=== PATIENT | female | born 1945 | race Caucasian/White ===

== ENCOUNTER → 2019-04-13 | Outpatient (CLI) | payer MEDICARE, OTHER | LOC: CARD 08:39 | PROVIDERS: ATTEND Family Medicine | DX: R06.09 Other forms of dyspnea (principal) | CPT/HCPCS: 93306 ==

== ENCOUNTER → 2019-05-11 | Outpatient (CLI) | payer MEDICARE, OTHER ==
[~2019-05-11] MED LIST: RT-ALBUTEROL SULF 2.5 MG/3 ML PRE-MIX VIAL INH ONE
== END ==
LOC: RT 10:17
PROVIDERS: ATTEND Family Medicine
DX: R06.09 Other forms of dyspnea (principal)
CPT/HCPCS: 94060; 94726; 94729

== ENCOUNTER 2021-01-11 22:24 | Emergency (ER) | payer MEDICARE, OTHER ==
[~2021-01-11] VITALS: Ht 165.1 cm; Wt 90.7 kg
[2021-01-11] MEDS ORDERED: KETOROLAC 60 MG/2 ML VIAL IM ONE (23:45)
--- NOTE | 2021-01-11 23:59 | Diagnostic Imaging Report ---
INDICATION: Left knee pain AP, oblique, and lateral views of the left knee are obtained. No acute fracture or acute bony abnormality seen. There is severe medial joint space narrowing with osteophyte formation with moderate lateral joint space narrowing and osteophyte formation. There is prominent patellofemoral spurring. There is a small joint effusion with questionable loose body in the superior joint space. IMPRESSION: Advanced degenerative changes of the left knee with joint effusion and questionable loose body in the superior joint space. No acute fracture. Dictated by: Dictated on workstation # [id number]
[2021-01-12] MEDS ORDERED: RX-NAPROXEN (NAPROSYN) 250 MG TAB PPK#4 PO STA (00:23)
[2021-01-12] MEDS ORDERED: TRAM-42 PO (00:26)
[2021-01-12] MEDS ORDERED: NAPR500T8 PO (00:26)
--- NOTE | 2021-01-12 00:27 | ED Lower Extremity ---
General Chief Complaint: Lower Extremity Stated Complaint: LEFT KNEE PAIN Nursing Triage Note: ASSISTED PT VIA W/C TO FT1 W/CO POSTERIOR AND ANTERIOR L KNEE PAIN. PT REPORTS AFTER AEROBIC EXERCISES THIS EVENING SHE BEGAN TO EXPERIENCE PAIN TO POSTERIOR L KNEE RADIATING DISTALLY TO CALF. PT DESCRIBES DISCOMFORT FEELING SIMILAR TO A "CHARLEY HORSE." PT REPORTS SHE TOOK 600MG IBUPROFEN AND APPLIED ASPER CREAM WITH NO RELIEF IN DISCOMFORT. PT REPORTS ANTERIOR L KNEE PAIN SHE BELIEVES TO BE ASSOCIATED WITH CHRONIC ARTHRITIS. PT REPORTS SHE RECIEVED A CORTIZONE INJECTION TO R KNEE ON THURSDAY BY DR. PARKER AND BELIEVES SHE NEEDS TO CORTIZONE INJECTION TO L KNEE AT THIS TIME. Allergies and Home Medications Allergies Coded Allergies: No Known Drug Allergies (Unverified , 05/11/19) Past Eughjwa-Uegdhg-Vgocis Hx Patient Social History Tobacco Use?: No Substance use?: No Alcohol Use?: No Pt feels they are or have been: No Past Medical History Reproductive Disorders: No Physical Exam Vital Signs Vital Signs - First Documented 01/11/21 23:12 Temp 36.5 Pulse 110 Resp 17 B/P (MAP) 141/82 (101) Pulse Ox 97 O2 Delivery Room Air Capillary Refill : Less Than 3 Seconds Height, Weight, BMI Height: '" Weight: lbs. oz. kg; 33.00 BMI Method: Progress/Results/Core Measures Results/Orders My Orders Orders - LEROY CÁRDENAS DO Ketorolac Injection (Toradol Injection) (01/11/21 23:45) Knee, Left, 3 Views (01/11/21 23:33) Medications Given in ED Current Medications Medications Dose Ordered Sig/Lalito Route Start Time Stop Time Status Last Admin Dose Admin Ketorolac Tromethamine 60 mg ONCE ONCE IM 01/11/21 23:45 01/11/21 23:46 DC 01/11/21 23:47 60 MG Vital Signs/I&O 01/11/21 23:12 Temp 36.5 Pulse 110 Resp 17 B/P (MAP) 141/82 (101) Pulse Ox 97 O2 Delivery Room Air Blood Pressure Mean: 101 Departure Impression Primary Impression: Left knee pain Disposition: 01 HOME, SELF-CARE Condition: Stable Departure-Patient Inst. Referrals: NEVAEH FRNAKS MD (PCP/Family) Primary Care Physician CATALINO PARKER MD Patient Instructions: Knee Pain ED Add. Discharge Instructions: JACQUE WRAP TO KNEE FOR COMFORT ICE TO AREA AT 20 MINUTE INTERVALS ELEVATE LEG MUCH POSSIBLE FOLLOW UP WITH DR. PARKER NEXT WEEK FOR FURTHER CARE All discharge instructions reviewed with patient and/or family. Voiced understanding. Scripts Tramadol HCl (Ultram) 50 Mg Tablet 50 MG PO Q4H for Pain, #20 TAB Prov: LEROY CÁRDENAS DO 01/12/21 Naproxen (Naproxen) 500 Mg Tablet. 500 MG PO BID, #20 TAB Prov: LEROY CÁRDENAS DO 01/12/21 LEROY CÁRDENAS DO Jan 12, 2021 00:27
[2021-01-12 00:35] VITALS: BP 141/82
== END 2021-01-12 00:35 | disposition home or self-care (01) ==
LOC: EDUNIT# 22:24 → ER 22:28
DX: M25.562 Pain in left knee (principal)
CPT/HCPCS: 73562; 96372

== ENCOUNTER → 2021-02-18 | Outpatient (CLI) | payer OTHER ==
[~2021-02-18] MED LIST changes: +NAPR500T8 PO; -RT-ALBUTEROL SULF 2.5 MG/3 ML PRE-MIX VIAL INH ONE; +TRAM-42 PO
--- NOTE | 2021-02-18 15:54 | Diagnostic Imaging Report ---
INDICATION: Dyspnea on exertion. COMPARISON: CT abdomen dated 01/08/2008. FINDINGS: Frontal and lateral views of the chest demonstrate normal heart size and pulmonary vascularity. The lungs are clear. There are no signs of infiltrate, pleural effusions, or pneumothoraces. The visualized osseous structures show no acute abnormalities. A moderate hiatal hernia is noted. IMPRESSION: No acute process. No signs of infiltrates, effusions, or pneumothoraces. Dictated by: Dictated on workstation # [id number]
== END ==
LOC: RAD 14:46
PROVIDERS: ATTEND Internal Medicine Cardiovascular Disease
DX: R06.09 Other forms of dyspnea (principal)
CPT/HCPCS: 71046

== ENCOUNTER → 2021-02-22 | Outpatient (CLI) | payer MEDICARE | LOC: CARD 09:30 | PROVIDERS: ATTEND Internal Medicine Cardiovascular Disease | DX: I51.7 Cardiomegaly (principal); I36.1 Nonrheumatic tricuspid (valve) insufficiency | CPT/HCPCS: 93306 ==

== ENCOUNTER → 2021-02-28 | Outpatient (CLI) | payer MEDICARE ==
[~2021-02-28] VITALS: Ht 167 cm; Wt 95.0 kg
[~2021-02-28] MED LIST changes: +CATHETER FLUSH 10 ML SYR IV PRN; +REGADENOSON 0.4 MG/5 ML SYR (LEXISCAN) IV ONE
--- NOTE | 2021-02-28 18:20 | NUCLEAR STRESS TEST ---
TREADMILL NUCLEAR STRESS TEST Date of procedure: 02/28/2021. Primary care provider: Gume Souza MD. Admitting physician: Ivan Cabezas Junior, MD. INDICATION: Dyspnea on exertion and abnormal ECG. BASELINE ELECTROCARDIOGRAM: Sinus rhythm with occasional premature supraventricular complexes, low voltage in the precordial leads and nonspecific T wave changes. STRESS TEST PROCEDURE: The patient was exercised for a total of 2 minutes and 48 seconds of the standard Donovan protocol achieving a maximum MET level of 4.2. The resting heart rate was 77 bpm and the peak heart rate was 177 bpm, which represents 121% of the maximum predicted heart rate. The resting blood pressure was 160/90 mmHg and the peak blood pressure was 211/101 mmHg. This represents a tachycardia heart rate and a hypertensive blood pressure response to exercise with resting hypertension. The test was stopped due to dyspnea. There was no chest discomfort during the test. There were isolated premature supraventric ular complexes during the test. There were no significant stress induced electrocardiogram changes. The patient exhibited fair exercise capacity for age. NUCLEAR PROCEDURE: The patient was administered 11 mCi of intravenous technetium 99m Tetrofosmin at rest for the rest images. The patient was subsequently administered 32.5 mCi of intravenous technetium 99 M Tetrofosmin at peak stress for the stress images. Following an appropriate wait after each injection, imaging was obtained. The images were subsequently processed and reformatted in the usual views. Gated imaging was obtained. The image quality was adequate but with some degree of gastrointestinal and breast attenuation artifact. CT attenuation correction was used as a adjunct to standard imaging. Both the corrected and uncorrected images were reviewed for interpretation. NUCLEAR RESULTS: There was normal myocardial perfusion in all segments without evidence of infarction or ischemia. There was normal left ventricular chamber size with an end-diastolic volume of 38 mL and an end-systolic volume of 10 mL. There was no evidence of transient ischemic dilatation. The TID ratio was 0.93. There was normal wall motion in all segments with a calculated ejection fraction of 73%. IMPRESSION: 1. Tachycardic heart rate and a hypertensive blood pressure response to exercise with resting hypertension. 2. There was no chest discomfort during the test. 3. There were isolated premature supraventricular complexes at rest and throughout the test. 4. There were no exercise-induced electrocardiogram changes. 5. The patient exhibited fair exercise capacity for age at 2 minutes and 46 seconds of the Donovan protocol. 6. There was normal myocardial perfusion in all segments without evidence of infarction or ischemia. 7. There was normal wall motion in all segments with a calculated ejection fraction of 73%. Certain portions of this document may have been dictated utilizing voice recognition technology. Inherent to this technology, typographical and grammatical errors may exist. As much as I am diligent to identify and correct these mistakes, some errors may remain in the document. IVAN CABEZAS JR, MD Feb 28, 2021 18:20
== END ==
LOC: CARD 08:00
PROVIDERS: ATTEND Internal Medicine Cardiovascular Disease
DX: R06.09 Other forms of dyspnea (principal); R94.31 Abnormal electrocardiogram [ECG] [EKG]
CPT/HCPCS: 78452; 93017; A9502

== ENCOUNTER → 2021-07-01 | Outpatient (CLI) | payer MEDICARE ==
[~2021-07-01] MED LIST changes: -CATHETER FLUSH 10 ML SYR IV PRN; -REGADENOSON 0.4 MG/5 ML SYR (LEXISCAN) IV ONE
== END ==
LOC: LABNPT 05:55
PROVIDERS: ATTEND Orthopaedic Surgery
DX: Z01.812 Encounter for preprocedural laboratory examination (principal); U07.1 COVID-19
CPT/HCPCS: 87635

== ENCOUNTER 2021-11-13 10:49 | Observation (INO) | payer MEDICARE ==
[~2021-11-13] VITALS: Ht 165.1 cm; Wt 105.2 kg
--- NOTE | 2021-11-13 11:26 | ED Cardiac General ---
History of Present Illness General Chief Complaint: Cardiac/General Problems Stated Complaint: AFIB - SOA Nursing Triage Note: PT AMB TO RM 5 WITH COMPLAINT OF AFIB. WAS SENT FROM [facility] FOR FURTHER EVALUATION. PT WENT IN TO HAVE KNEE SURGERY AND WAS FOUND TO BE IN AFIB ON PREOP EKG. Source: patient, family (Daughter) Exam Limitations: no limitations History of Present Illness Date Seen by Provider: Nov 13, 2021 Time Seen by Provider: 10:57 Initial Comments Patient presents to the ER from [facility] with chief complaint of atrial fibrillation and rapid ventricular response. She does not have a known history of atrial fibrillation but has been told by her primary care provider, Dr. Franks she had a irregular heart rate in the past. She does not take blood thinners or rate control medicines. She does not have a history of coronary disease but does have hypertension. She is not on antihyperlipidemia medications. She denies a history of diabetes. She was sent for medical/cardiac clearance by Dr. Cabezas for a left knee replacement by Dr. Flor. She is not able to complete her surgery today because of her RVR. She is not having any chest pain but she does feel short of breath worse with exertion. No orthopnea or increased swelling in her legs or feet. She does not smoke cigarettes. Echocardiogram by Dr. Cabezas from about a year ago showed an EF of 60 to 65% with grade 1 diastolic dysfunction and mild concentric hypertrophy. Mild to moderate tricuspid regurgitation. Structurally normal. Stress test [address] Cabezas demonstrating no evidence of ischemia or infarction. EF 73%. Allergies and Home Medications Allergies Coded Allergies: No Known Drug Allergies (Unverified , 05/11/19) Patient Home Medication List Home Medication List Reviewed: Yes Naproxen (Naproxen) 500 Mg Tablet.dr 500 MG PO BID Prescribed by: LEROY CÁRDENAS on 01/12/21 002 Tramadol HCl (Ultram) 50 Mg Tablet, 50 MG PO Q4H Prescribed by: LEROY CÁRDENAS on 01/12/21 0027 Review of Systems Review of Systems Constitutional: No chills, No diaphoresis EENTM: No Blurred Vision, No Double Vision Respiratory: Denies Cough; Shortness of Air, SOA With Exertion Cardiovascular: Denies Chest Pain, Denies Edema; Irregular Heart Rate; Denies Palpitations Gastrointestinal: Denies Abdominal Pain, Denies Constipated, Denies Diarrhea Genitourinary: Denies Burning, Denies Discharge Musculoskeletal: No back pain, No joint pain All Other Systems Reviewed Negative Unless Noted: Yes Past Myfewrj-Gilovy-Exlsts Hx Patient Social History Tobacco Use?: No Use of E-Cig and/or Vaping dev: No Substance use?: No Alcohol Use?: No Pt feels they are or have been: No Past Medical History Surgery/Hospitalization HX: HERNIA REPAIR HYSTERECTOMY--DOES NOT KNOW IF OVARIES WERE REMOVED APPENDECTOMY Surgeries: Yes Abdominal, Appendectomy, Hysterectomy Respiratory: No Cardiac: Yes Hypertension Neurological: No Reproductive Disorders: No 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 oz. kg; 36.00 BMI Method: General Appearance: No Apparent Distress, WD/WN HEENT: PERRL/EOMI, Pharynx Normal, Moist Mucous Membranes Neck: Full Range of Motion, Normal Inspection Respiratory: Lungs Clear, Normal Breath Sounds, No Accessory Muscle Use, No Respiratory Distress Cardiovascular: No Edema, No Gallop, No JVD, No Murmur, Irregularly Irregular, Tachycardia (130s) Extremity: Normal Capillary Refill, Normal Inspection, No Pedal Edema Neurologic/Psychiatric: Alert, Oriented x3 Skin: Normal Color, Warm/Dry Progress/Results/Core Measures Results/Orders Lab Results Laboratory Tests Test 11/13/21 11:00 11/13/21 11:32 Range/Units White Blood Count 8.9 4.3-11.0 10^3/uL Red Blood Count 5.77 H 3.80-5.11 10^6/uL Hemoglobin 16.1 H 11.5-16.0 g/dL Hematocrit 50 35-52 % Mean Corpuscular Volume 86 80-99 fL Mean Corpuscular Hemoglobin 28 25-34 pg Mean Corpuscular Hemoglobin Concent 32 32-36 g/dL Red Cell Distribution Width 14.4 10.0-14.5 % Platelet Count 253 130-400 10^3/uL Mean Platelet Volume 12.2 9.0-12.2 fL Immature Granulocyte % (Auto) 0 % Neutrophils (%) (Auto) 81 H 42-75 % Lymphocytes (%) (Auto) 12 12-44 % Monocytes (%) (Auto) 6 0-12 % Eosinophils (%) (Auto) 1 0-10 % Basophils (%) (Auto) 1 0-10 % Neutrophils # (Auto) 7.1 1.8-7.8 10^3/uL Lymphocytes # (Auto) 1.1 1.0-4.0 10^3/uL Monocytes # (Auto) 0.5 0.0-1.0 10^3/uL Eosinophils # (Auto) 0.1 0.0-0.3 10^3/uL Basophils # (Auto) 0.0 0.0-0.1 10^3/uL Immature Granulocyte # (Auto) 0.0 0.0-0.1 10^3/uL Prothrombin Time 13.6 12.2-14.7 SEC INR Comment 1.0 0.8-1.4 Activated Partial Thromboplast Time 26 24-35 SEC Sodium Level 142 135-145 MMOL/L Potassium Level 3.9 3.6-5.0 MMOL/L Chloride Level 110 H 98-107 MMOL/L Carbon Dioxide Level 19 L 21-32 MMOL/L Anion Gap 13 5-14 MMOL/L Blood Urea Nitrogen 11 7-18 MG/DL Creatinine 0.96 0.60-1.30 MG/DL Estimat Glomerular Filtration Rate 62 BUN/Creatinine Ratio 11 Glucose Level 126 H 70-105 MG/DL Calcium Level 9.2 8.5-10.1 MG/DL Corrected Calcium 9.2 8.5-10.1 MG/DL Magnesium Level 2.0 1.6-2.4 MG/DL Total Bilirubin 0.9 0.1-1.0 MG/DL Aspartate Amino Transf (AST/SGOT) 18 5-34 U/L Alanine Aminotransferase (ALT/SGPT) 18 0-55 U/L Alkaline Phosphatase 105 40-136 U/L Troponin I < 0.028 <0.028 NG/ML Total Protein 6.9 6.4-8.2 GM/DL Albumin 4.0 3.2-4.5 GM/DL Urine Color YELLOW Urine Clarity CLEAR Urine pH 5.5 5-9 Urine Specific [place] >=1.030 1.016-1.022 Urine Protein NEGATIVE NEGATIVE Urine Glucose (UA) NEGATIVE NEGATIVE Urine Ketones NEGATIVE NEGATIVE Urine Nitrite NEGATIVE NEGATIVE Urine Bilirubin NEGATIVE NEGATIVE Urine Urobilinogen 0.2 < = 1.0 MG/DL Urine Leukocyte Esterase NEGATIVE NEGATIVE Urine RBC (Auto) NEGATIVE NEGATIVE Urine RBC NONE /HPF Urine WBC NONE /HPF Urine Squamous Epithelial Cells 5-10 /HPF Urine Crystals NONE /LPF Urine Bacteria FEW H /HPF Urine Casts NONE /LPF Urine Mucus MODERATE H /LPF Urine Culture Indicated NO My Orders Orders - ANA LILIA FLORES Ekg Tracing (11/13/21 10:52) Continuous Ekg Monitoring (11/13/21 10:52) Apixaban Tablet (Eliquis Tablet) (11/13/21 11:30) Diltiazem Drip Pre-Mix (Cardizem Drip Pr (11/13/21 11:30) Diltiazem Injection (Cardizem Injection) (11/13/21 11:30) Ed Iv/Invasive Line Start (11/13/21 11:18) Ns Iv 1000 Ml (Sodium Chloride 0.9%) (11/13/21 11:30) Ua Culture If Indicated (11/13/21 11:18) Cbc With Automated Diff (11/13/21 11:18) Comprehensive Metabolic Panel (11/13/21 11:18) Magnesium (11/13/21 11:18) Protime With Inr (11/13/21 11:18) Partial Thromboplastin Time (11/13/21 11:18) Troponin I [place] (11/13/21 11:18) Chest 1 View, Ap/Pa Only (11/13/21 11:18) Medications Given in ED Current Medications Medications Dose Ordered Sig/Lalito Route Start Time Stop Time Status Last Admin Dose Admin Apixaban 5 mg ONCE ONCE PO 11/13/21 11:30 11/13/21 11:31 DC 11/13/21 11:41 5 MG Diltiazem HCl 10 mg ONCE ONCE IVP 11/13/21 11:30 11/13/21 11:31 DC 11/13/21 11:39 10 MG Vital Signs/I&O 11/13/21 10:52 Temp 35.7 Pulse 140 Resp 22 B/P (MAP) 145/83 (103) Pulse Ox 95 O2 Delivery Room Air Blood Pressure Mean: 103 Progress Progress Note #1: Time: 11:27 Progress Note Good blood pressure in the 1 teens. 10 of Cardizem, a liter of fluids, start a Cardizem drip at 5 mg/h and check some labs. Eliquis 5 mg. [id number] score of at least 4 points. Progress Note #2: Time: 12:43 Progress Note Patient is feeling a little better. Her heart rate is down around 100-110. At first she was hesitant to stay in the hospital however after discussing with her daughter she would like to stay overnight for cardiac consultation. Initial ECG Impression Date: Nov 13, 2021 Initial ECG Impression Time: 10:56 Initial ECG Rate: 135 Initial ECG Rhythm: A Fib/Flutter Initial ECG Intervals: QT (382) Initial ECG Impression: Atrial Fibrillation w/RVR Initial ECG Comparisson: Changed Comment Atrial fibrillation with rapid ventricular response. No clinically relevant ST changes. Diagnostic Imaging Diagonstic Imaging: Xray Plain Films/CT/US/NM/MRI: chest Comments [facility] [place], [place] NAME: DIANA AMBRIZ [facility] REC#: [id number] PT STATUS: REG ER : 1945 PHYSICIAN: ANA LILIA FLORES MD ADMIT DATE: 11/13/21/ER Draft Date of Exam:11/13/21 CHEST 1 VIEW, AP/PA ONLY INDICATION: Tachycardia. Time of Exam: 11:53 AM Correlation is made with prior chest from 02/18/2021. Heart appears to be enlarged. Lungs are clear. No infiltrate or failure is detected. No effusion or pneumothorax is detected. IMPRESSION: Cardiomegaly. No acute feature is detected. Dictated on workstation # [id number] Dict: 11/13/21 1200 Trans: 11/13/21 1202 [facility] [id number] Interpreted by: DEBORAH FORDE MD Electronically signed by: Reviewed: Reviewed by Me Departure Communication (Admissions) Time/Spoke to Admitting Phy: 12:[address] Blum. Time/Spoke to Consulting Phy: 12:[address] Dalton, cardiology who agrees to consult on the case Cardizem drip and ICU placement. Brandy. Impression Primary Impression: Atrial fibrillation with rapid ventricular response Disposition: ADMITTED INPATIENT Condition: Stable Admissions Decision to Admit Reason: Admit from ER (General) Decision to Admit/Date: Nov 13, 2021 Time/Decision to Admit Time: 12:43 Departure-Patient Inst. Referrals: NEVAEH FRANKS MD (PCP/Family) Primary Care Physician ANA LILIA FLORES Nov 13, 2021 11:25
[2021-11-13 11:27] LABS: BASOPHILS % (AUTO) 1 % (0-10); EOSINOPHILS # (AUTO) 0.1 10^3/uL (0.0-0.3); EOSINOPHILS % (AUTO) 1 % (0-10); HEMATOCRIT 50 % (35-52); HEMOGLOBIN 16.1 g/dL (11.5-16.0); LYMPHOCYTES # (AUTO) 1.1 10^3/uL (1.0-4.0); LYMPHOCYTES % (AUTO) 12 % (12-44); MEAN CORPUSCULAR HEMOGLOBIN 28 pg (25-34); MEAN CORPUSCULAR HGB CONC 32 g/dL (32-36); MEAN CORPUSCULAR VOLUME 86 fL (80-99); MEAN PLATELET VOLUME 12.2 fL (9.0-12.2); MONOCYTES # (AUTO) 0.5 10^3/uL (0.0-1.0); MONOCYTES % (AUTO) 6 % (0-12); NEUTROPHILS # (AUTO) 7.1 10^3/uL (1.8-7.8); NEUTROPHILS % (AUTO) 81 % (42-75); PLATELET COUNT 253 10^3/uL (130-400); WHITE BLOOD COUNT 8.9 10^3/uL (4.3-11.0)
[2021-11-13] MEDS ORDERED: NS IV 1000 ML 1,000 ML IV SCH (11:30)
[2021-11-13] MEDS ORDERED: APIXABAN 5 MG (ELIQUIS) TABLET PO ONE (11:30)
[2021-11-13 11:32] LABS: CHLORIDE 110 MMOL/L (98-107); POTASSIUM 3.9 MMOL/L (3.6-5.0); SODIUM 142 MMOL/L (135-145)
[2021-11-13 11:33] LABS: CALCIUM 9.2 MG/DL (8.5-10.1)
[2021-11-13 11:34] LABS: GLUCOSE 126 MG/DL (70-105); TOTAL PROTEIN 6.9 GM/DL (6.4-8.2)
[2021-11-13 11:35] LABS: CARBON DIOXIDE 19 MMOL/L (21-32)
[2021-11-13 11:36] LABS: BILIRUBIN,TOTAL 0.9 MG/DL (0.1-1.0)
[2021-11-13 11:38] LABS: ALKALINE PHOSPHATASE 105 U/L (40-136); CREATININE SERUM 0.96 MG/DL (0.60-1.30); GFR ESTIMATED 62
[2021-11-13 11:39] LABS: BUN/CREATININE RATIO 11
[2021-11-13 11:41] LABS: ALANINE AMINOTRANSFERASE 18 U/L (0-55)
[2021-11-13] MEDS: dilTIAZem DRIP PRE-MIX 125 ML IV SCH ×2 (11:41→22:05)
[2021-11-13 11:44] LABS: BILIRUBIN,URINE NEGATIVE (NEGATIVE); CLARITY,URINE CLEAR; COLOR,URINE YELLOW; GLUCOSE, URINE (UA) NEGATIVE (NEGATIVE); KETONES,URINE NEGATIVE (NEGATIVE); LEUKOCYTE ESTERASE ,URINE NEGATIVE (NEGATIVE); NITRITE,URINE NEGATIVE (NEGATIVE); PH,URINE 5.5 (5-9); PROTEIN,URINE NEGATIVE (NEGATIVE)
[2021-11-13 11:49] LABS: PROTHROMBIN TIME PATIENT 13.6 SEC (12.2-14.7)
[2021-11-13 11:53] LABS: BACTERIA,URINE FEW /HPF
--- NOTE | 2021-11-13 12:02 | Diagnostic Imaging Report ---
INDICATION: Tachycardia. Time of Exam: 11:53 AM Correlation is made with prior chest from 02/18/2021. Heart appears to be enlarged. Lungs are clear. No infiltrate or failure is detected. No effusion or pneumothorax is detected. IMPRESSION: Cardiomegaly. No acute feature is detected. Dictated by: Dictated on workstation # [id number]
[2021-11-13 13:40] VITALS: BP 135/93
[2021-11-13] MEDS ORDERED: dilTIAZem DRIP PRE-MIX 125 ML IV SCH (14:15)
[2021-11-13] MEDS ORDERED: polyethylene glycoL POWDER 17 GM (MIRALAX) PACK PO PRN (14:15)
[2021-11-13] MEDS ORDERED: ANTACID SUSP 30 ML UDC (MYLANTA) PO PRN (14:15)
[2021-11-13] MEDS ORDERED: ONDANSETRON 4 MG/2 ML (SDV) Z0FRAN IV PRN (14:15)
[2021-11-13] MEDS ORDERED: ONDANSETRON 4 MG (ZOFRAN) ORAL DISSOLVE TAB PO PRN (14:15)
[2021-11-13] MEDS ORDERED: MELATONIN 3 MG TABLET PO PRN (14:15)
[2021-11-13] MEDS ORDERED: IBUP-2185 PO (14:39)
[2021-11-13] MEDS ORDERED: ACET-2267 PO (14:39)
[2021-11-13] MEDS ORDERED: FURO40TA4 PO (14:39)
[2021-11-13] MEDS ORDERED: GARL10002 PO (14:39)
[2021-11-13] MEDS ORDERED: ASPI-1238 PO (14:39)
[2021-11-13] MEDS ORDERED: AMLO-250 PO (14:39)
--- NOTE | 2021-11-13 14:50 | Tele-ICU Progress Note ---
Subjective Date Seen by a Provider: Nov 13, 2021 Time Seen by a Provider: 14:42 Subjective/Events-last exam she is a 76-year-old female with past medical history of hypertension and apparently she was not taking her amlodipine for the last 2 weeks. She is scheduled for knee. Knee replacement today but preop EKG revealed atrial fibrillation with rapid ventricular rate. She has no history of atrial fibrillation in the past. She is not on any medications for that. She is also not on any anticoagulant therapy. She is admitted to the ICU for control of atrial fibrillation with rapid ventricular rate. Patient is being seen by vendor manager. No telemetry ICU consult. But I have visited the patient via v ideo visit and discussed with the patient partner telemetry ICU protocol and also discussed with the GED INSTRUCTOR. Available data and labs reviewed. Patient denies any chest pain or any dizziness palpitations. However she does have a mild shortness of breath. She is currently started on diltiazem drip and apixaban for anticoagulation. Review of Systems ROS PER RN Sepsis Event Evaluation Height, Weight, BMI Height: '" Weight: lbs. oz. kg; 37.97 BMI Method: Exam Exam Patient acknowledged, consented, and participated in this virtual visit which was conducted using real time audio/video Vital Signs Date Time Temp Pulse Resp B/P (MAP) Pulse Ox O2 Delivery O2 Flow Rate FiO2 11/13/21 14:19 36.9 11/13/21 14:15 106 7 93/59 94 11/13/21 14:09 108 11/13/21 13:40 107 20 135/93 97 Room Air 11/13/21 10:52 35.7 140 22 145/83 (103) 95 Room Air Height & Weight Height: '" Weight: lbs. oz. kg; 37.97 BMI Method: General Appearance: No Apparent Distress, WD/WN, Obese HEENT: PERRL/EOMI, Pharynx Normal, Moist Mucous Membranes Neck: Full Range of Motion, Normal Inspection Respiratory: Lungs Clear, Normal Breath Sounds, No Accessory Muscle Use, No Respiratory Distress Cardiovascular: No Edema, No Gallop, No JVD, No Murmur, Irregularly Irregular, Tachycardia (130s) Capillary Refill: Less Than 3 Seconds Extremity: Normal Capillary Refill, Normal Inspection, No Pedal Edema Neurologic/Psychiatric: Alert, Oriented x3 Skin: Normal Color, Warm/Dry Results Lab Laboratory Tests 11/13/21 11:00 Radiology PE PER post commander/Plan Assessment/Plan 1. Newly diagnosed atrial fibrillation with rapid ventricular rate. Management per cardiology 2. Hypertension 3. DJD.. Recommendations. Treatment of A. fib and hypertension under clearing for surgery per cardiology service. Advised RN to contact telemetry ICU if needed any help. Critical Care: Critically Ill Patient Time spent with patient (mins): 15 ALTAF DONATO MD Nov 13, 2021 14:50
--- NOTE | 2021-11-13 15:37 | Consultation-Cardiology ---
HPI-Cardiology Cardiology Consultation: Date of Consultation 11/13/21 Date of Admission 11-13-21 Attending Physician Gume Souza MD Admitting Physician Admitting Physician: Keyona Blum MD Attending Physician: Keyona Blum MD Consulting Physician Dalton Dalton MD Primary Gear Coding Machine Operator: Dr. Cabezas HPI: Chief Complaint: Newly dx a-fib with RVR Ms. Ambriz is a 76 yr old female admitted to ICU 1 from the ED with newly dx a-fib with RVR. Her daughter is at the bedside with her. She reports she went to [facility] today in order to have a knee replacement. She states she was found to have an irregular heartbeat. They carried out an ECG and was found to be in a-fib with RVR. She was directed to the ED. Her daughter is from [place] and is with her. She reports for the last 2 years she has had increasing DIAS which has been affecting her ability to carry out activities. She denies any CP, palpitations. She reports she has mild to mod bilat LE swelling. She reports she was started on Norvasc for HTN, but stopped it d/t signif bilat LE swelling. She reports she saw Dr. Cabezas a few weeks ago for eval prior to surgery. Review of Systems-Cardiology Review of Systems Constitutional: No chills, No fever; tiredness Eyes: No vision change Ears/Nose/Throat: No epistaxis, No recent hearing loss Respiratory: As described under HPI Cardiovascular: As described under HPI Gastrointestinal: No constipation, No diarrhea, No nausea, No vomiting Genitourinary: No hematuria Musculoskeletal: no symptoms reported Skin: No rash on exposed areas, No ulcerations on exposed areas Psychiatric/Neurological: No anxiety, No depression, No seizure, No focal weakness, No syncope Hematologic: No bleeding abnormalities All Other Systems Reviewed Negative Unless Noted: Yes TXN-Fimcyg-Ksokac Hx Patient Social History Have you traveled recently?: No Alcohol Use?: No Pt feels they are or have been: No Past Medical History PMH As described under Assessment. Family Medical History Family Medical History: She reports a son who from valvular dz. Allergies and Home Medications Allergies Coded Allergies: No Known Drug Allergies (Unverified , 05/11/19) Patient Home Medication List Acetaminophen (Tylenol Extra Strength) 500 Mg Tablet, 500-1,000 MG PO Q8H PRN for PAIN-MILD (1-4), (Reported) Entered as Reported by: VERONIKA MCALLISTER on 11/13/211438 Last Action: Reviewed Amlodipine Besylate (Amlodipine Besylate) 5 Mg Tablet, 5 MG PO DAILY PRN for BLOOD PRESSURE, (Reported) Entered as Reported by: VERONIKA MCALLISTER on 11/13/211438 Last Action: Reviewed Aspirin (Aspirin EC) 81 Mg Tablet.dr, 81 MG PO DAILY, (Reported) Entered as Reported by: VERONIKA MCALLISTER on 11/13/211438 Last Action: Reviewed Furosemide (Furosemide) 40 Mg Tablet, 40 MG PO DAILY PRN for FLUID RETENTION, (Reported) Entered as Reported by: VERONIKA MCALLISTER on 11/13/211438 Last Action: Reviewed Garlic (Garlic) 1,000 Mg Capsule, 1,000 MG PO DAILY, (Reported) Entered as Reported by: VERONIKA MCALLISTER on 11/13/211438 Last Action: Reviewed Ibuprofen (Ibuprofen) 200 Mg Capsule, 400 MG PO Q8H PRN for PAIN-MILD (1-4), (Reported) Entered as Reported by: VERONIKA MCALLISTER on 11/13/211438 Last Action: Reviewed Discontinued Medications Naproxen (Naproxen) 500 Mg Tablet.dr, 500 MG PO BID Discontinued Reason: No Longer Taking Prescribed by: LEROY CÁRDENAS on 01/12/2125 Last Action: Discontinued Tramadol HCl (Ultram) 50 Mg Tablet, 50 MG PO Q4H Discontinued Reason: No Longer Taking Prescribed by: LEROY CÁRDENAS on 01/12/2126 Last Action: Discontinued Physical Exam-Cardiology Physical Exam Vital Signs/I&O 11/13/21 11/13/21 11/13/21 11/13/21 10:52 13:40 14:09 14:15 Temp 35.7 Pulse 140 107 108 106 Resp 22 20 7 B/P (MAP) 145/83 (103) 135/93 93/59 Pulse Ox 95 97 94 O2 Delivery Room Air Room Air 11/13/21 11/13/21 11/13/21 11/13/21 14:19 14:30 15:00 15:43 Temp 36.9 36.1 Pulse 105 Resp 26 B/P (MAP) 133/90 Pulse Ox 93 95 O2 Delivery Room Air 11/13/21 16:00 Pulse 97 Resp 25 B/P (MAP) 152/88 Pulse Ox 96 Capillary Refill : Less Than 3 Seconds Constitutional: AAO x 3, well-developed, well-nourished HEENT: PERRL, hard of hearing, oral hygience is good Neck: No carotid bruit; carotid pulses are 2 + bilaterally Respiratory: No accessory muscle use, No respiratory distress; chest expansion is symmetric, chest is bilaterally symmetric, other (prolonged exp phase) Cardiovascular: irregularly irregular; No JVD; tachycardia, systolic murmur Gastrointestinal: No tender; soft, round, audible bowel sounds Extremities: no lower extremity edema bilateral Neurologic/Psychiatric: grossly intact (moves all extremities) Skin: No rash on exposed areas, No ulcerations on exposed areas Data Review Labs Laboratory Tests 11/13/21 11:00: White Blood Count 8.9, Red Blood Count 5.77H, Hemoglobin 16.1H, Hematocrit 50, Mean Corpuscular Volume 86, Mean Corpuscular Hemoglobin 28, Mean Corpuscular Hemoglobin Concent 32, Red Cell Distribution Width 14.4, Platelet Count 253, Mean Platelet Volume 12.2, Immature Granulocyte % (Auto) 0, Neutrophils (%) (Auto) 81H, Lymphocytes (%) (Auto) 12, Monocytes (%) (Auto) 6, Eosinophils (%) (Auto) 1, Basophils (%) (Auto) 1, Neutrophils # (Auto) 7.1, Lymphocytes # (Auto) 1.1, Monocytes # (Auto) 0.5, Eosinophils # (Auto) 0.1, Basophils # (Auto) 0.0, Immature Granulocyte # (Auto) 0.0, Prothrombin Time 13.6, INR Comment 1.0, Activated Partial Thromboplast Time 26, Sodium Level 142, Potassium Level 3.9, Chloride Level 110H, Carbon Dioxide Level 19L, Anion Gap 13, Blood Urea Nitrogen 11, Creatinine 0.96, Estimat Glomerular Filtration Rate 62, BUN/Creatinine Ratio 11, Glucose Level 126H, Calcium Level 9.2, Corrected Calcium 9.2, Magnesium Level 2.0, Total Bilirubin 0.9, Aspartate Amino Transf (AST/SGOT) 18, Alanine Aminotransferase (ALT/SGPT) 18, Alkaline Phosphatase 105, Troponin I < 0.028, Total Protein 6.9, Albumin 4.0 6/8/22 11:32: Urine Color YELLOW, Urine Clarity CLEAR, Urine pH 5.5, Urine Specific [place] >=1.030, Urine Protein NEGATIVE, Urine Glucose (UA) NEGATIVE, Urine Ketones NEGATIVE, Urine Nitrite NEGATIVE, Urine Bilirubin NEGATIVE, Urine Urobilinogen 0.2, Urine Leukocyte Esterase NEGATIVE, Urine RBC (Auto) NEGATIVE, Urine RBC NONE, Urine WBC NONE, Urine Squamous Epithelial Cells 5-10, Urine Crystals NONE, Urine Bacteria FEWH, Urine Casts NONE, Urine Mucus MODERATEH, Urine Culture Indicated NO Radiology NAME: DIANA AMBRIZ [facility] REC#: [id number] PT STATUS: REG ER : 1945 PHYSICIAN: ANA LILIA FLORES MD ADMIT DATE: 11/13/21/ER Draft Date of Exam:11/13/21 CHEST 1 VIEW, AP/PA ONLY INDICATION: Tachycardia. Time of Exam: 11:53 AM Correlation is made with prior chest from 02/18/2021. Heart appears to be enlarged. Lungs are clear. No infiltrate or failure is detected. No effusion or pneumothorax is detected. IMPRESSION: Cardiomegaly. No acute feature is detected. Dictated on workstation # [id number] Dict: 11/13/21 1200 Trans: 11/13/21 1202 [facility] [id number] Interpreted by: DEBORAH FORDE MD Electronically signed by: ECG Impression ECG Initial ECG Impression: Atrial Fibrillation w/RVR A/P-Cardiology Assessment/Admission Diagnosis A-fib with RVR - first dx on EKG at [facility] when she presented for surgery - [facility] - MPI of 02-28-[address] Cabezas showed - normal myocardial perfusion in all segments without evidence of infarction or ischemia. There was normal wall motion in all segments with a calculated ejection fraction of 73% - Echocardiogram by Dr. Cabezas in Feb 2021 showed an EF of 60 to 65% with grade 1 diastolic dysfunction and mild concentric hypertrophy. Mild to moderate tricuspid regurgitation. HTN - reported intolerance to Norvasc d/t LE swelling COPD - managed by her PCP, Dr. Souza Symptoms suggestive of sleep apnea - advise out pt sleep studies Discussion and Recomendations Newly dx a-fib with RVR - length of time undetermined - rate improved with IV Cardizem Daughter and patient concerned with valvular dz d/t recent passing of pt's son from valvular dz - echocardiogram Start OAC with Eliquis Advise out pt sleep studies d/t symptoms suggestive of sleep apnea Monitor lab - replace electrolytes as indicated Further recs will be based on her hospital course We would like to thank medical services for this consult Multiple questions answered from patient and daughter in great detail DEBBIE TEE Nov 13, 2021 15:37
--- NOTE | 2021-11-13 17:23 | Consultation-Cardiology ---
HPI-Cardiology Cardiology Consultation: Date of Consultation 11/13/21 Time Seen by a Provider: 16:50 Date of Admission Attending Physician Gume Souza MD Admitting Physician Admitting Physician: Keyona Blum MD Attending Physician: Keyona Blum MD Consulting Physician MARCIN MOORE MD, MA, FACP, FACC, [facility], CCDS HPI: Chief Complaint: Newly dx a-fib with RVR Ms. Cho is a 76 yr old female admitted to ICU 1 from the ED with newly dx a-fib with RVR. Her daughter is at the bedside with her. She reports she went to [facility] today in order to have a knee replacement. She states she was found to have an irregular heartbeat. They carried out an ECG and was found to be in a-fib with RVR. She was directed to the ED. Her daughter is from [place] and is with her. She reports for the last 2 years she has had in creasing DIAS which has been affecting her ability to carry out activities. She denies any CP, palpitations. She reports she has mild to mod bilat LE swelling. She reports she was started on Norvasc for HTN, but stopped it d/t signif bilat LE swelling. She reports she saw Dr. Cabezas a few weeks ago for eval prior to surgery. Review of Systems-Cardiology Review of Systems Constitutional: No chills, No fever; tiredness Eyes: No vision change Ears/Nose/Throat: No epistaxis, No recent hearing loss Respiratory: As described under HPI Cardiovascular: As described under HPI Gastrointestinal: No constipation, No diarrhea, No nausea, No vomiting Genitourinary: No hematuria Musculoskeletal: no symptoms reported Skin: No rash on exposed areas, No ulcerations on exposed areas Psychiatric/Neurological: No anxiety, No depression, No seizure, No focal weakness, No syncope Hematologic: No bleeding abnormalities All Other Systems Reviewed Negative Unless Noted: Yes RQI-Afojst-Sxlktq Hx Patient Social History Have you traveled recently?: No Alcohol Use?: No Pt feels they are or have been: No Past Medical History PMH As described under Assessment. Family Medical History Family Medical History: She reports a son who from valvular dz. Allergies and Home Medications Allergies Coded Allergies: No Known Drug Allergies (Unverified , 05/11/19) Patient Home Medication List Home Medication List Reviewed: Yes Acetaminophen (Tylenol Extra Strength) 500 Mg Tablet, 500-1,000 MG PO Q8H PRN for PAIN-MILD (1-4), (Reported) Entered as Reported by: VERONIKA MCALLISTER on 11/13/211438 Last Action: Reviewed Amlodipine Besylate (Amlodipine Besylate) 5 Mg Tablet, 5 MG PO DAILY PRN for BLOOD PRESSURE, (Reported) Entered as Reported by: VERONIKA MCALLISTER on 11/13/211438 Last Action: Reviewed Aspirin (Aspirin EC) 81 Mg Tablet., 81 MG PO DAILY, (Reported) Entered as Reported by: VERONIKA MCALLISTER on 11/13/211438 Last Action: Reviewed Furosemide (Furosemide) 40 Mg Tablet, 40 MG PO DAILY PRN for FLUID RETENTION, (Reported) Entered as Reported by: VERONIKA MCALLISTER on 11/13/211438 Last Action: Reviewed Garlic (Garlic) 1,000 Mg Capsule, 1,000 MG PO DAILY, (Reported) Entered as Reported by: VERONIKA MCALLISTER on 11/13/211438 Last Action: Reviewed Ibuprofen (Ibuprofen) 200 Mg Capsule, 400 MG PO Q8H PRN for PAIN-MILD (1-4), (Re ported) Entered as Reported by: VERONIKA MCALLISTER on 11/13/211438 Last Action: Reviewed Discontinued Medications Naproxen (Naproxen) 500 Mg Tablet.dr, 500 MG PO BID Discontinued Reason: No Longer Taking Prescribed by: LEROY CÁRDENAS on 01/12/2125 Last Action: Discontinued Tramadol HCl (Ultram) 50 Mg Tablet, 50 MG PO Q4H Discontinued Reason: No Longer Taking Prescribed by: LEROY CÁRDENAS on 01/12/2126 Last Action: Discontinued Physical Exam-Cardiology Physical Exam Vital Signs/I&O 11/13/21 11/13/21 11/13/21 11/13/21 10:52 13:40 14:09 14:15 Temp 35.7 Pulse 140 107 108 106 Resp 22 20 7 B/P (MAP) 145/83 (103) 135/93 93/59 Pulse Ox 95 97 94 O2 Delivery Room Air Room Air 11/13/21 11/13/21 11/13/21 11/13/21 14:19 14:30 15:00 15:43 Temp 36.9 36.1 Pulse 105 Resp 26 B/P (MAP) 133/90 Pulse Ox 93 95 O2 Delivery Room Air 11/13/21 11/13/21 11/13/21 16:00 16:00 17:00 Pulse 97 97 Resp 25 8 B/P (MAP) 152/88 138/72 Pulse Ox 96 93 95 O2 Delivery Room Air Room Air Capillary Refill : Less Than 3 Seconds Constitutional: AAO x 3, well-developed, well-nourished HEENT: PERRL, hard of hearing, oral hygience is good Neck: No carotid bruit; carotid pulses are 2 + bilaterally Respiratory: No accessory muscle use, No respiratory distress; chest expansion is symmetric, chest is bilaterally symmetric, other (prolonged exp phase) Cardiovascular: irregularly irregular; No JVD; tachycardia, systolic murmur Gastrointestinal: No tender; soft, round, audible bowel sounds Extremities: no lower extremity edema bilateral Neurologic/Psychiatric: grossly intact (moves all extremities) Skin: No rash on exposed areas, No ulcerations on exposed areas Data Review Labs Laboratory Tests 11/13/21 11:00: White Blood Count 8.9, Red Blood Count 5.77H, Hemoglobin 16.1H, Hematocrit 50, Mean Corpuscular Volume 86, Mean Corpuscular Hemoglobin 28, Mean Corpuscular Hemoglobin Concent 32, Red Cell Distribution Width 14.4, Platelet Count 253, Mean Platelet Volume 12.2, Immature Granulocyte % (Auto) 0, Neutrophils (%) (Auto) 81H, Lymphocytes (%) (Auto) 12, Monocytes (%) (Auto) 6, Eosinophils (%) (Auto) 1, Basophils (%) (Auto) 1, Neutrophils # (Auto) 7.1, Lymphocytes # (Auto) 1.1, Monocytes # (Auto) 0.5, Eosinophils # (Auto) 0.1, Basophils # (Auto) 0.0, Immature Granulocyte # (Auto) 0.0, Prothrombin Time 13.6, INR Comment 1.0, Activated Partial Thromboplast Time 26, Sodium Level 142, Potassium Level 3.9, Chloride Level 110H, Carbon Dioxide Level 19L, Anion Gap 13, Blood Urea Nitrogen 11, Creatinine 0.96, Estimat Glomerular Filtration Rate 62, BUN/Creatinine Ratio 11, Glucose Level 126H, Calcium Level 9.2, Corrected Calcium 9.2, Magnesium Level 2.0, Total Bilirubin 0.9, Aspartate Amino Transf (AST/SGOT) 18, Alanine Aminotransferase (ALT/SGPT) 18, Alkaline Phosphatase 105, Troponin I < 0.028, Total Protein 6.9, Albumin 4.0 11/13/21 11:32: Urine Color YELLOW, Urine Clarity CLEAR, Urine pH 5.5, Urine Specific [place] >=1.030, Urine Protein NEGATIVE, Urine Glucose (UA) NEGATIVE, Urine Ketones NEGA TIVE, Urine Nitrite NEGATIVE, Urine Bilirubin NEGATIVE, Urine Urobilinogen 0.2, Urine Leukocyte Esterase NEGATIVE, Urine RBC (Auto) NEGATIVE, Urine RBC NONE, Urine WBC NONE, Urine Squamous Epithelial Cells 5-10, Urine Crystals NONE, Urine Bacteria FEWH, Urine Casts NONE, Urine Mucus MODERATEH, Urine Culture Indicated NO A/P-Cardiology Assessment/Admission Diagnosis A-fib with RVR - first dx on EKG at [facility] when she presented for surgery - seen again on ECG on 11-13-21 at [facility] ED - MPI of 02-28-[address] Cabezas showed - normal myocardial perfusion in all segments without evidence of infarction or ischemia. There was normal wall motion in all segments with a calculated ejection fraction of 73% - Echocardiogram by Dr. Cabezas in Feb 2021 showed an EF of 60 to 65% with grade 1 diastolic dysfunction and mild concentric hypertrophy. Mild to moderate tricuspid regurgitation. HTN - reported intolerance to Norvasc d/t LE swelling COPD - managed by her PCP, Dr. Souza Symptoms suggestive of sleep apnea - advise out pt sleep studies Discussion and Recomendations Newly dx a-fib with RVR - length of time undetermined - rate improved with IV Cardizem Daughter and patient concerned with valvular dz d/t recent passing of pt's son from valvular dz - echocardiogram Start OAC with Eliquis Advise out pt sleep studies d/t symptoms suggestive of sleep apnea Monitor lab - replace electrolytes as indicated Further recs will be based on her hospital course We would like to thank medical services for this consult Multiple questions answered from patient and daughter in great detail MARCIN MOORE MD [facility] CCDS Nov 13, 2021 17:23
--- NOTE | 2021-11-13 18:42 | History & Physical-Hospitalist ---
History of Present Illness Date Seen 11/13/21 Attending Physician Guem Souza MD PCP Admitting Physician: Keyona Bach MD Attending Physician: Keyona Bach MD Referring Physician Date of Admission Nov 13, 2021 at 12:58 Home Medications & Allergies Home Medications Reviewed patient Home Medication Reconciliation performed by pharmacy medication reconciliations geotechnical field technician and/or nursing. Patients Allergies have been reviewed. 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 oz. kg; 38.63 BMI Method: Results Results/Procedures Labs Laboratory Tests 11/13/21 11:00 11/14/21 04:13 Patient resulted labs reviewed. Imaging: Reviewed Imaging Report Assessment/Plan Admission Diagnosis AFib with RVR Admission Status: Observation Assessment and Plan AFib with RVR Newly diagnosed Cardiology consulted IV Cardizem Started on Eliquis Echo ordered Possible BELKIS Recommend outpatient sleep study HTN COPD Obesity Osteoarthritis Diagnosis/Problems Diagnosis/Problems (1) Atrial fibrillation with rapid ventricular response Status: Acute (2) HTN (hypertension) Status: Chronic (3) COPD (chronic obstructive pulmonary disease) Status: Chronic (4) Obesity Status: Chronic (5) Osteoarthritis Status: Chronic KEYONA BACH MD Nov 13, 2021 18:42
[2021-11-13] MEDS: APIXABAN 5 MG (ELIQUIS) TABLET PO SCH (20:31)
[2021-11-13] MEDS: ACETAMINOPHEN 325 MG TABLET PO PRN (21:04)
[2021-11-14 04:29] LABS: BASOPHILS # (AUTO) 0.1 10^3/uL (0.0-0.1); BASOPHILS % (AUTO) 1 % (0-10); EOSINOPHILS # (AUTO) 0.1 10^3/uL (0.0-0.3); EOSINOPHILS % (AUTO) 2 % (0-10); HEMATOCRIT 48 % (35-52); HEMOGLOBIN 15.3 g/dL (11.5-16.0); LYMPHOCYTES # (AUTO) 1.4 10^3/uL (1.0-4.0); LYMPHOCYTES % (AUTO) 21 % (12-44); MEAN CORPUSCULAR HEMOGLOBIN 28 pg (25-34); MEAN CORPUSCULAR HGB CONC 32 g/dL (32-36); MEAN CORPUSCULAR VOLUME 87 fL (80-99); MONOCYTES # (AUTO) 0.4 10^3/uL (0.0-1.0); MONOCYTES % (AUTO) 7 % (0-12); NEUTROPHILS # (AUTO) 4.7 10^3/uL (1.8-7.8); NEUTROPHILS % (AUTO) 69 % (42-75); PLATELET COUNT 226 10^3/uL (130-400); WHITE BLOOD COUNT 6.8 10^3/uL (4.3-11.0)
[2021-11-14 04:44] LABS: ALBUMIN 3.7 GM/DL (3.2-4.5); POTASSIUM 4.2 MMOL/L (3.6-5.0)
[2021-11-14 04:46] LABS: CALCIUM 8.8 MG/DL (8.5-10.1)
[2021-11-14 04:47] LABS: TOTAL PROTEIN 6.3 GM/DL (6.4-8.2)
[2021-11-14 04:49] LABS: BILIRUBIN,TOTAL 0.8 MG/DL (0.1-1.0)
[2021-11-14 04:50] LABS: CREATININE SERUM 0.9 MG/DL (0.60-1.30); PHOSPHORUS 3.1 MG/DL (2.3-4.7)
[2021-11-14 04:54] LABS: MAGNESIUM 1.9 MG/DL (1.6-2.4)
[2021-11-14] MEDS ORDERED: POTASSIUM CL 10MEQ/50ML IVPB 50 ML IV SCH (06:00)
[2021-11-14] MEDS ORDERED: MAGNESIUM 1 GM/100 ML IVPB 100 ML IV SCH (06:00)
[2021-11-14] MEDS ORDERED: KCL 20 MEQ TAB (K-DUR) PO SCH (06:00)
[2021-11-14] MEDS: APIXABAN 5 MG (ELIQUIS) TABLET PO SCH (08:14)
--- NOTE | 2021-11-14 08:28 | Progress Note - Cardiology ---
Cardiology SOAP Progress Note Subjective: Wants to go home today No c/o CP, SOB, palpitations Objective: I&O/Vital Signs 11/13/21 11/13/21 11/13/21 11/13/21 21:00 22:00 23:00 23:51 Temp 36.4 Pulse 101 93 89 Resp 20 22 18 B/P (MAP) 107/69 123/73 113/59 Pulse Ox 96 92 93 O2 Delivery Room Air Room Air Room Air 11/14/21 11/14/21 11/14/21 11/14/21 00:00 00:00 01:00 01:00 Pulse 82 87 87 Resp 15 22 B/P (MAP) 99/68 107/58 Pulse Ox 94 90 95 O2 Delivery Room Air Room Air Room Air 11/14/21 11/14/21 11/14/21 11/14/21 02:00 03:00 03:59 04:00 Temp 36.1 Pulse 76 71 Resp 18 17 B/P (MAP) 115/76 91/51 Pulse Ox 92 93 94 O2 Delivery Room Air Room Air Room Air 11/14/21 11/14/21 11/14/21 11/14/21 04:00 05:00 06:00 07:00 Pulse 93 76 63 67 Resp 16 B/P (MAP) 121/72 123/79 108/65 Pulse Ox 94 93 90 O2 Delivery Room Air Room Air Room Air 11/14/21 11/14/21 11/14/21 07:00 08:00 08:00 Temp 36.3 Pulse 67 85 Resp 22 30 B/P (MAP) 105/60 124/71 Pulse Ox 95 92 O2 Delivery Room Air Room Air 11/14/21 00:00 Intake Total 1670 ml Output Total 550 ml Balance 1120 ml Constitutional: AAO x 3, well-developed, well-nourished Respiratory: No accessory muscle use, No respiratory distress; chest expansion is symmetric, chest is bilaterally symmetric, other (prolonged exp phase) Cardiovascular: irregularly irregular; No JVD; systolic murmur Gastrointestional: No tender; soft, round, audible bowel sounds Extremities: no lower extremity edema bilateral Neurologic/Psychiatric: grossly intact (moves all extremities) Skin: No rash on exposed areas, No ulcerations on exposed areas Results/Procedures: Labs Laboratory Tests 11/13/21 11:00: White Blood Count 8.9, Red Blood Count 5.77H, Hemoglobin 16.1H, Hematocrit 50, Mean Corpuscular Volume 86, Mean Corpuscular Hemoglobin 28, Mean Corpuscular Hemoglobin Concent 32, Red Cell Distribution Width 14.4, Platelet Count 253, Mean Platelet Volume 12.2, Immature Granulocyte % (Auto) 0, Neutrophils (%) (Auto) 81H, Lymphocytes (%) (Auto) 12, Monocytes (%) (Auto) 6, Eosinophils (%) (Auto) 1, Basophils (%) (Auto) 1, Neutrophils # (Auto) 7.1, Lymphocytes # (Auto) 1.1, Monocytes # (Auto) 0.5, Eosinophils # (Auto) 0.1, Basophils # (Auto) 0.0, Immature Granulocyte # (Auto) 0.0, Prothrombin Time 13.6, INR Comment 1.0, Activated Partial Thromboplast Time 26, Sodium Level 142, Potassium Level 3.9, Chloride Level 110H, Carbon Dioxide Level 19L, Anion Gap 13, Blood Urea Nitrogen 11, Creatinine 0.96, Estimat Glomerular Filtration Rate 62, BUN/Creatinine Ratio 11, Glucose Level 126H, Calcium Level 9.2, Corrected Calcium 9.2, Magnesium Level 2.0, Total Bilirubin 0.9, Aspartate Amino Transf (AST/SGOT) 18, Alanine Aminotransferase (ALT/SGPT) 18, Alkaline Phosphatase 105, Troponin I < 0.028, To mary Protein 6.9, Albumin 4.0 11/13/21 11:32: Urine Color YELLOW, Urine Clarity CLEAR, Urine pH 5.5, Urine Specific [place] >=1.030, Urine Protein NEGATIVE, Urine Glucose (UA) NEGATIVE, Urine Ketones NEGATIVE, Urine Nitrite NEGATIVE, Urine Bilirubin NEGATIVE, Urine Urobilinogen 0.2, Urine Leukocyte Esterase NEGATIVE, Urine RBC (Auto) NEGATIVE, Urine RBC NONE, Urine WBC NONE, Urine Squamous Epithelial Cells 5-10, Urine Crystals NONE, Urine Bacteria FEWH, Urine Casts NONE, Urine Mucus MODERATEH, Urine Culture Indicated NO 11/14/21 04:13: White Blood Count 6.8, Red Blood Count 5.46H, Hemoglobin 15.3, Hematocrit 48, Mean Corpuscular Volume 87, Mean Corpuscular Hemoglobin 28, Mean Corpuscular H emoglobin Concent 32, Red Cell Distribution Width 14.6H, Platelet Count 226, Me an Platelet Volume 12.0, Immature Granulocyte % (Auto) 0, Neutrophils (%) (Auto) 69, Lymphocytes (%) (Auto) 21, Monocytes (%) (Auto) 7, Eosinophils (%) (Auto) 2, Basophils (%) (Auto) 1, Neutrophils # (Auto) 4.7, Lymphocytes # (Auto) 1.4, Monocytes # (Auto) 0.4, Eosinophils # (Auto) 0.1, Basophils # (Auto) 0.1, Immature Granulocyte # (Auto) 0.0, Sodium Level 141, Potassium Level 4.2, Chl oride Level 109H, Carbon Dioxide Level 22, Anion Gap 10, Blood Urea Nitrogen 10, Creatinine 0.90, Estimat Glomerular Filtration Rate 67, BUN/Creatinine Ratio 11, Glucose Level 110H, Calcium Level 8.8, Corrected Calcium 9.0, Magnesium Level 1.9, Total Bilirubin 0.8, Aspartate Amino Transf (AST/SGOT) 16, Alanine Aminotransferase (ALT/SGPT) 18, Alkaline Phosphatase 92, Total Protein 6.3L, Albumin 3.7, Phosphorus Level 3.1 Laboratory Tests 11/13/21 11:00 11/14/21 04:13 A/P: Assessment: A-fib with RVR - first dx on EKG at [facility] when she presented for surgery - seen again on ECG on 11-13-[address] [facility] - MPI of 02-28-[address] Cabezas showed - normal myocardial perfusion in all segments without evidence of infarction or ischemia. There was normal wall motion in all segments with a calculated ejection fraction of 73% - Echocardiogram by Dr. Cabezas in Feb 2021 showed an EF of 60 to 65% with grade 1 diastolic dysfunction and mild concentric hypertrophy. Mild to moderate tricuspid regurgitation. HTN - reported intolerance to Norvasc d/t LE swelling COPD - managed by her PCP, Dr. Souza Symptoms suggestive of sleep apnea - advise out pt sleep studies Plan: Newly dx a-fib with RVR - length of time undetermined - rate improved with IV Cardizem - change to oral - discussed consideration of cardioversion after she has been on OAC uninterrupted for 3 weeks Daughter and patient concerned with valvular dz d/t recent passing of pt's son from valvular dz - echocardiogram Start OAC with Eliquis Advise out pt sleep studies d/t symptoms suggestive of sleep apnea Monitor lab - replace electrolytes as indicated Further recs will be based on her hospital course DEBBIE TEE Nov 14, 2021 08:28
[2021-11-14] MEDS: ACETAMINOPHEN 325 MG TABLET PO PRN (11:48)
--- NOTE | 2021-11-14 12:22 | Progress Note - Cardiology ---
Cardiology SOAP Progress Note Subjective: No cp or palp or syncope No shortness of breath at rest No n/v/d Wishes to go home Objective: I&O/Vital Signs 11/14/21 11/14/21 11/14/21 11/14/21 01:00 01:00 02:00 03:00 Pulse 87 87 76 71 Resp 22 18 17 B/P (MAP) 107/58 115/76 91/51 Pulse Ox 95 92 93 O2 Delivery Room Air Room Air Room Air 11/14/21 11/14/21 11/14/21 11/14/21 03:59 04:00 04:00 05:00 Temp 36.1 Pulse 93 76 Resp 16 B/P (MAP) 121/72 123/79 Pulse Ox 94 94 93 O2 Delivery Room Air Room Air Room Air 11/14/21 11/14/21 11/14/21 11/14/21 06:00 07:00 07:00 08:00 Temp 36.3 Pulse 63 67 67 Resp 22 B/P (MAP) 108/65 105/60 Pulse Ox 90 95 O2 Delivery Room Air Room Air 11/14/21 11/14/21 11/14/21 11/14/21 08:00 08:00 09:00 10:00 Pulse 85 75 70 Resp 30 12 15 B/P (MAP) 124/71 118/67 125/73 Pulse Ox 92 92 O2 Delivery Room Air Room Air Room Air Room Air 11/14/21 11:00 Pulse 71 Resp 13 O2 Delivery Room Air 11/14/21 00:00 Intake Total 1670 ml Output Total 550 ml Balance 1120 ml Constitutional: AAO x 3, well-developed, well-nourished Respiratory: No accessory muscle use, No respiratory distress; chest expansion is symmetric, chest is bilaterally symmetric, other (prolonged exp phase) Cardiovascular: irregularly irregular; No JVD; systolic murmur Gastrointestional: No tender; soft, round, audible bowel sounds Extremities: no lower extremity edema bilateral Neurologic/Psychiatric: oriented x 3, other (moves all limbs equally) Skin: No rash on exposed areas, No ulcerations on exposed areas Results/Procedures: Labs Laboratory Tests 11/14/21 04:13: White Blood Count 6.8, Red Blood Count 5.46H, Hemoglobin 15.3, Hematocrit 48, Mean Corpuscular Volume 87, Mean Corpuscular Hemoglobin 28, Mean Corpuscular Hemoglobin Concent 32, Red Cell Distribution Width 14.6H, Platelet Count 226, Mean Platelet Volume 12.0, Immature Granulocyte % (Auto) 0, Neutrophils (%) (Auto) 69, Lymphocytes (%) (Auto) 21, Monocytes (%) (Auto) 7, Eosinophils (%) (Auto) 2, Basophils (%) (Auto) 1, Neutrophils # (Auto) 4.7, Lymphocytes # (Auto) 1.4, Monocytes # (Auto) 0.4, Eosinophils # (Auto) 0.1, Basophils # (Auto) 0.1, Immature Granulocyte # (Auto) 0.0, Sodium Level 141, Potassium Level 4.2, Chloride Level 109H, Carbon Dioxide Level 22, Anion Gap 10, Blood Urea Nitrogen 10, Creatinine 0.90, Estimat Glomerular Filtration Rate 67, BUN/Creatinine Ratio 11, Glucose Level 110H, Calcium Level 8.8, Corrected Calcium 9.0, Phosphorus Level 3.1, Magnesium Level 1.9, Total Bilirubin 0.8, Aspartate Amino Transf (AST/SGOT) 16, Alanine Aminotransferase (ALT/SGPT) 18, Alkaline Phosphatase 92, Total Protein 6.3L, Albumin 3.7 Laboratory Tests 11/13/21 11:00 11/14/21 04:13 A/P: Assessment: A-fib with RVR - first dx on EKG at [facility] when she presented for surgery - seen again on ECG on 11-13-21 at [facility] ED - MPI of 02-28-[address] Cabezas showed - normal myocardial perfusion in all seg ments without evidence of infarction or ischemia. There was normal wall motion in all segments with a calculated ejection fraction of 73% - Echocardiogram by Dr. Cabezas in Feb 2021 showed an EF of 60 to 65% with grade 1 diastolic dysfunction and mild concentric hypertrophy. Mild to moderate tricuspid regurgitation. - Echocardiogram on 11/14/21: LVEF 65-70%, mild enlargement of LA, trivial MR, mild TR, PASP 30-35 mmHg HTN - reported intolerance to Norvasc d/t LE swelling COPD - managed by her PCP, Dr. Souza Symptoms suggestive of sleep apnea - advise out pt sleep studies Plan: * I had a long and detailed discussion with the patient and her daughter and answered their questions in detail. They had been very concerned about valvular heart disease and specifically requested that echo be repeated. That was done. Results are noted above. No significant valvular heart disease is seen. I discussed this in detail with them * Management and treatment options were reviewed in detail. Current plan is for the rate-control approach. After 3 week of full anticoag, we can consider elec cardioversion if still in A Fib and if she desires to be cardioverted. Dilt is being change to long-acting oral form. OAC is being continued. F/u is advised her benefits consultant Dr Cabezas next week. We have advised return to ER in case of any symptoms MARCIN MOORE MD FACP FAC CCDS Nov 14, 2021 12:22
[2021-11-14] MEDS ORDERED: DILT300C52 PO (12:33)
[2021-11-14] MEDS ORDERED: APIX5TAB PO (12:33)
--- NOTE | 2021-11-14 15:51 | Discharge Summary ---
Discharge Summary Hospital Course Problems/Dx: (1) Atrial fibrillation with rapid ventricular response Status: Acute (2) HTN (hypertension) Status: Chronic (3) COPD (chronic obstructive pulmonary disease) Status: Chronic (4) Obesity Status: Chronic (5) Osteoarthritis Status: Chronic Hospital Course Date of Admission: Nov 13, 2021 at 12:58 Admission Diagnosis : AFib with RVR Family Physician/Provider: Gume Franks MD Date of Discharge: 11/14/21 Discharge Diagnosis: AFib with RVR Hospital Course: Jagjit Cho is a 76 year old female who was admitted with new onset AFib with RVR. Cardiology was consulted and assisted with her care. She was initially placed on IV Cardizem. She was then transitioned to oral Cardizem once her rates were better controlled. She was started on Eliquis. She was discharged home in stable condition. She should follow up with her PCP in a week or two. She should follow up with Cardiology as scheduled. Labs and Pending Lab Test: Laboratory Tests 11/14/21 04:13: White Blood Count 6.8, Red Blood Count 5.46H, Hemoglobin 15.3, Hematocrit 48, Mean Corpuscular Volume 87, Mean Corpuscular Hemoglobin 28, Mean Corpuscular Hemoglobin Concent 32, Red Cell Distribution Width 14.6H, Platelet Count 226, Mean Platelet Volume 12.0, Immature Granulocyte % (Auto) 0, Neutrophils (%) (Auto) 69, Lymphocytes (%) (Auto) 21, Monocytes (%) (Auto) 7, Eosinophils (%) (Auto) 2, Basophils (%) (Auto) 1, Neutrophils # (Auto) 4.7, Lymphocytes # (Auto) 1.4, Monocytes # (Auto) 0.4, Eosinophils # (Auto) 0.1, Basophils # (Auto) 0.1, Immature Granulocyte # (Auto) 0.0, Sodium Level 141, Potassium Level 4.2, Chloride Level 109H, Carbon Dioxide Level 22, Anion Gap 10, Blood Urea Nitrogen 10, Creatinine 0.90, Estimat Glomerular Filtration Rate 67, BUN/Creatinine Ratio 11, Glucose Level 110H, Calcium Level 8.8, Corrected Calcium 9.0, Phosphorus Level 3.1, Magnesium Level 1.9, Total Bilirubin 0.8, Aspartate Amino Transf (AST/SGOT) 16, Alanine Aminotransferase (ALT/SGPT) 18, Alkaline Phosphatase 92, Total Protein 6.3L, Albumin 3.7 Home Meds Active Diltiazem 24Hr ER (Diltiazem HCl) 300 Mg Cap.er.24h 300 Mg PO DAILY 30 Days Eliquis (Apixaban) 5 Mg Tablet 5 Mg PO BID 30 Days Reported Ibuprofen 200 Mg Capsule 400 Mg PO Q8H PRN Tylenol Extra Strength (Acetaminophen) 500 Mg Tablet 500-1,000 Mg PO Q8H PRN Garlic 1,000 Mg Capsule 1,000 Mg PO DAILY Aspirin EC (Aspirin) 81 Mg Tablet.dr 81 Mg PO DAILY Furosemide 40 Mg Tablet 40 Mg PO DAILY PRN Assessment/Pt Instructions See instructions Discharge Planning: <30 minutes discharge planning Discharge Instructions Discharge Diet: Low Sodium Diet Activity as Tolerated: Yes Consultations Cardiology Discharge Physical Examination Vital Signs Vital Signs Date Time Temp Pulse Resp B/P (MAP) Pulse Ox O2 Delivery O2 Flow Rate FiO2 11/14/21 13:37 11/14/21 12:00 Room Air 11/14/21 12:00 74 11 11/14/21 09:00 92 11/14/21 08:00 36.3 General Appearance: No Apparent Distress, Obese HEENT: PERRL/EOMI, Pharynx Normal Respiratory: Lungs Clear, Normal Breath Sounds, No Respiratory Distress Cardiovascular: Regular Rate, Rhythm, No Murmur Gastrointestinal: Normal Bowel Sounds, Non Tender, Soft Extremity: Normal Inspection, Non Tender, No Pedal Edema Skin: Normal Color, Warm/Dry Neurologic/Psychiatric: Alert, Oriented x3, Normal Mood/Affect Allergies: Coded Allergies: No Known Drug Allergies (Unverified , 05/11/19) Copy Copies To 1: GUME FRANKS MD Discharge Summary Date of Admission Nov 13, 2021 at 12:58 Date of Discharge Discharge Date: Nov 14, 2021 Discharge Time: 15:44 Admission Diagnosis AFib with RVR Consults/Procedures Consulations Cardiology Discharge Diagnosis AFib with RVR (1) Atrial fibrillation with rapid ventricular response Status: Acute (2) HTN (hypertension) Status: Chronic (3) COPD (chronic obstructive pulmonary disease) Status: Chronic (4) Obesity Status: Chronic (5) Osteoarthritis Status: Chronic MACIEL BACH MD Nov 14, 2021 15:48
== END 2021-11-14 13:35 | disposition home or self-care (01) ==
LOC: EDUNIT# 10:49 → ER 10:51 → ICU 12:58
PROVIDERS: ADMIT Internal Medicine; ATTEND Internal Medicine
DX: I48.91 Unspecified atrial fibrillation (principal); I10 Essential (primary) hypertension; J44.9 Chronic obstructive pulmonary disease, unspecified; E66.9 Obesity, unspecified; M19.90 Unspecified osteoarthritis, unspecified site; I07.1 Rheumatic tricuspid insufficiency
CPT/HCPCS: 71045; 80053 ×2; 81000; 83735 ×2; 84100; 84484; 85025 ×2; 85610; 85730; 87081; 93005; 93306; 96366 ×2; 99285; G0378; 36415

== ENCOUNTER 2021-12-02 09:15 | Outpatient (CLI) | payer MEDICARE ==
[~2021-12-02 09:15] MED LIST changes: +ACET-2267 PO; +AMLO-250 PO; +APIX5TAB PO; +ASPI-1238 PO; +DILT300C52 PO; +FURO40TA4 PO; +GARL10002 PO; +IBUP-2185 PO
== END 2021-12-02 09:45 ==
LOC: SLEEP 09:15
PROVIDERS: ATTEND Internal Medicine Cardiovascular Disease
DX: G47.33 Obstructive sleep apnea (adult) (pediatric) (principal)
CPT/HCPCS: G0399

== ENCOUNTER 2021-12-26 08:30 | Day surgery (SDC) | payer MEDICARE ==
[~2021-12-26] VITALS: Ht 165.1 cm; Wt 104.8 kg
[2021-12-26] VITALS (7 sets, daily range): BP systolic 18–126; BP diastolic 62–89
[~2021-12-26 08:30] MED LIST changes: +BUSP5TAB59 PO; +CATHETER FLUSH 10 ML SYR IV PRN; +DILT300C51 PO; +NS IV 1000 ML 1,000 ML IV ONE; +NS IV 1000 ML 1,000 ML ONE; +POTA-51 PO; +proPOfol 200 MG/20 ML (DIPRIVAN) VIAL IV ONE
--- NOTE | 2021-12-26 08:37 | Anesthesia-General Post-Op ---
MAC Patient Condition Mental Status/LOC: Same as Preop Cardiovascular: Satisfactory Nausea/Vomiting: Absent Respiratory: Satisfactory Pain: Controlled Complications: Absent Post Op Complications Complications None Follow Up Care/Instructions Patient Instructions None needed. Anesthesiology Discharge Order Discharge Order Patient is doing well, no complaints, stable vital signs, no apparent adverse anesthesia problems. No complications reported per nursing. CHICO CHAMBERS CRNA Dec 26, 2021 08:37
--- NOTE | 2021-12-26 08:39 | Cardiac Procedure Note-[facility] ---
Cardiology Procedures Date of Procedure 12/26/21 DIRECT-CURRENT CARDIOVERSION INDICATION: Persistent atrial fibrillation. PROCEDURE: After informed consent and in the fasting state, deep sedation was provided by the anesthesia department. I subsequently performed direct current cardioversion utilizing synchronized, biphasic shocks. With the first shock at 120 J, the patient converted to sinus rhythm but within about 1 minute, converted back to atrial fibrillation. I then performed 1 additional shock at 200 J with again, successful conversion to sinus rhythm which she seemed to maintain. IMPRESSION: 1. Status post successful direct-current cardioversion with a final biphasic energy level of 200 J with successful conversion of atrial fibrillation to sinus rhythm. Certain portions of this document may have been dictated utilizing voice recognition technology. Inherent to this technology, typographical and grammatical errors may exist. As much as I am diligent to identify and correct these mistakes, some errors may remain in the document. ROOSEVELT SHELL JR, MD Dec 26, 2021 08:39
== END 2021-12-26 09:57 | disposition home or self-care (01) ==
LOC: CATH 08:30
PROVIDERS: ATTEND Internal Medicine Cardiovascular Disease
DX: I48.19 Other persistent atrial fibrillation (principal)
CPT/HCPCS: 87081; 92960; 93005

== ENCOUNTER → 2022-01-09 | Outpatient (CLI) | payer MEDICARE ==
[~2022-01-09] MED LIST changes: -CATHETER FLUSH 10 ML SYR IV PRN; -NS IV 1000 ML 1,000 ML IV ONE; -NS IV 1000 ML 1,000 ML ONE; -proPOfol 200 MG/20 ML (DIPRIVAN) VIAL IV ONE
== END ==
LOC: CARD 09:30
PROVIDERS: ATTEND Internal Medicine Cardiovascular Disease
DX: I48.19 Other persistent atrial fibrillation (principal)

== ENCOUNTER 2022-03-27 03:41 | Observation (INO) | payer MEDICARE ==
[~2022-03-27] VITALS: Ht 165 cm; Wt 107.1 kg
[2022-03-27 04:03] LABS: BASOPHILS # (AUTO) 0.1 10^3/uL (0.0-0.1); BASOPHILS % (AUTO) 1 % (0-10); EOSINOPHILS # (AUTO) 0.1 10^3/uL (0.0-0.3); EOSINOPHILS % (AUTO) 1 % (0-10); HEMATOCRIT 44 % (35-52); HEMOGLOBIN 14.7 g/dL (11.5-16.0); LYMPHOCYTES # (AUTO) 1.2 10^3/uL (1.0-4.0); LYMPHOCYTES % (AUTO) 13 % (12-44); MEAN CORPUSCULAR HEMOGLOBIN 30 pg (25-34); MEAN CORPUSCULAR HGB CONC 34 g/dL (32-36); MEAN CORPUSCULAR VOLUME 88 fL (80-99); MEAN PLATELET VOLUME 11.5 fL (9.0-12.2); MONOCYTES # (AUTO) 0.6 10^3/uL (0.0-1.0); MONOCYTES % (AUTO) 6 % (0-12); NEUTROPHILS # (AUTO) 7.4 10^3/uL (1.8-7.8); NEUTROPHILS % (AUTO) 79 % (42-75); PLATELET COUNT 287 10^3/uL (130-400); WHITE BLOOD COUNT 9.4 10^3/uL (4.3-11.0)
[2022-03-27] MEDS: dilTIAZem DRIP PRE-MIX 125 ML IV SCH ×3 (04:07→20:09)
[2022-03-27 04:11] LABS: ALBUMIN 3.7 GM/DL (3.2-4.5); CHLORIDE 112 MMOL/L (98-107); POTASSIUM 3.6 MMOL/L (3.6-5.0); SODIUM 139 MMOL/L (135-145)
[2022-03-27 04:12] LABS: CALCIUM 9.1 MG/DL (8.5-10.1)
[2022-03-27 04:13] LABS: GLUCOSE 165 MG/DL (70-105)
[2022-03-27 04:14] LABS: TOTAL PROTEIN 6.4 GM/DL (6.4-8.2)
[2022-03-27 04:15] LABS: CARBON DIOXIDE 16 MMOL/L (21-32)
--- NOTE | 2022-03-27 04:15 | ED Cardiac General ---
History of Present Illness General Chief Complaint: Cardiac/General Problems Stated Complaint: ELEVATED HEART RATE,HIGH BLOOD PRESSURE Nursing Triage Note: CHEST PRESSURE, TACHYCARDIA SINCE 0200 Source: patient History of Present Illness Date Seen by Provider: Mar 27, 2022 Time Seen by Provider: 03:49 Initial Comments PT ARRIVES VIA POV FROM HOME STATES SHE WOKE UP AT 0200 WITH HER HEART RACING, AND HAVING SOME CHEST PRESSURE AND SHORTNESS OF BREATH PT HAS HISTORY OF ATRIAL FIBRILLATION, WAS SUCCESSFULLY CARDIOVERTED 12/26/21 TO NORMAL SINUS RHYTHM, AND HAD BEEN DOING WELL SINCE THEN SHE STATES HER HEART RATE WAS IN THE 140'S AT HOME, AND BP WAS ELEVATED AT 175/105 PT IS MAINTAINED ON ASPIRIN, ELIQUIS AND CARDIZEM 24 HR CD [address] SHELL FOR CARDIOLOGY SHE HAD LEFT TOTAL KNEE REPLACEMENT LAST Thursday03/17/[address] MARKS AT [facility] 4 STATES SHE STOPPED HER ELIQUIS FOR 2 DAYS PRIOR TO SURGERY, AND RESTARTED AFTER SURGERY SHE HAS NOT MISSED ANY DOSES OF HER MEDICATION SHE IS NOT HAVING ANY SIGNIFICANT KNEE PAIN--TOOK 2 TYLENOL AT 0200 STATES SHE IS DOING VERY WELL NO REDNESS TO THE WOUND NO CALF PAIN LEFT LOWER LEG IS MILDLY SWOLLEN, EXPECTED. NO FEVER NO COUGH/CONGESTION OR URI SYMPTOMS NO SWEATS NO DIZZINESS OR SYNCOPE PT STATES SHE TOOK AMBIEN AT 2200 TONIGHT FOR THE FIRST TIME, AND THEN WOKE UP AT 0200 WITH THESE SYMPTOMS SHE REPEATS THIS SEVERAL TIMES AND STATES THAT "IT SAYS IT CAN CAUSE A RAPID HEART BEAT" AND PT BELIEVES THAT MEDICATION IS WHAT CAUSED THIS. 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 NEVAEH FRANKS PRESCHOOL AIDE: DR. SHELL Allergies and Home Medications Allergies Coded Allergies: No Known Drug Allergies (Unverified , 05/11/19) Patient Home Medication List Home Medication List Reviewed: Yes Acetaminophen (Tylenol Extra Strength) 500 Mg Tablet, 500-1,000 MG PO Q8H PRN for PAIN-MILD (1-4), (Reported) Entered as Reported by: VERONIKA MCALLISTER on 11/13/21 1439 Apixaban (Eliquis) 5 Mg Tablet, 5 MG PO BID, (Reported) Entered as Reported by: NAV MORAN on 12/26/21 0828 Aspirin (Aspirin EC) 81 Mg Tablet., 81 MG PO DAILY, (Reported) Entered as Reported by: VERONIKA MCALLISTER on 11/13/21 1439 Buspirone HCl (Buspirone HCl) 5 Mg Tablet, 5 MG PO HS, (Reported) Entered as Reported by: NAV MORAN on 12/26/21 0828 Diltiazem HCl (Diltiazem 24Hr Cd) 300 Mg Cap.er.24h, 300 MG PO DAILY, (Reported) Entered as Reported by: NAV MORAN on 12/26/21 0828 Furosemide (Furosemide) 40 Mg Tablet, 40 MG PO DAILY, (Reported) Entered as Reported by: VERONIKA MCALLISTER on 11/13/21 1439 Potassium Chloride (Potassium Chloride) 20 Meq Tablet.er, 20 MEQ PO DAILY PRN for LEG CRAMPS, (Reported) Entered as Reported by: NAV MORAN on 12/26/21827 Review of Systems Review of Systems Constitutional: no symptoms reported EENTM: No Symptoms Reported Respiratory: See HPI, Shortness of Air Cardiovascular: See HPI, Chest Pain, Irregular Heart Rate, Palpitations; Denies Syncope Gastrointestinal: No Symptoms Reported Genitourinary: No Symptoms Reported Musculoskeletal: see HPI Skin: no symptoms reported Psychiatric/Neurological: No Symptoms Reported Endocrine: No Symptoms Reported Hematologic/Lymphatic: See HPI Past Pzclhlm-Esyzvn-Jwmjxg Hx Patient Social History Tobacco Use?: No Substance use?: No Alcohol Use?: No Pt feels they are or have been: No Immunizations Up To Date First/Initial COVID19 Vaccinat: X2 Past Medical History Surgery/Hospitalization HX: HERNIA REPAIR,HYSTERECTOMY, APPENDECTOMY, L KNEE, AFIB, HTN, GERD, COLONOSCOPY 03/[address] TRUJILLO LEFT INGUINAL HERNIA REPAIR 01/[address] DUQUE LEFT TOTAL KNEE REPLACEMENT 03/17/[address] MARKS AT [facility] 4 [facility] SUCCESSFUL CARDIOVERSION FOR ATRIAL FIBRILLATION 12/26/[address] 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 HERNIA) Abdominal Hernia, Diverticulosis Musculoskeletal: Yes (LEFT TOTAL KNEE REPLACEMENT 03/17/22) Arthritis Endocrine: Yes (OBESITY) HEENT: No Cancer: No Psychosocial: No Integumentary: No Blood Disorders: No Family Medical History No Pertinent Family Hx Physical Exam Vital Signs Vital Signs - First Documented 03/27/22 03:47 Temp 36.5 Pulse 152 Resp 20 B/P (MAP) 127/114 (118) Pulse Ox 95 O2 Delivery Nasal Cannula O2 Flow Rate 2.00 Capillary Refill : Less Than 3 Seconds Height, Weight, BMI Height: '" Weight: lbs. oz. kg; 38.00 BMI Method: General Appearance: No Apparent Distress, WD/WN, Anxious Neck: No Carotid Bruit, No JVD Respiratory: Normal Breath Sounds, No Accessory Muscle Use, No Respiratory Distress Cardiovascular: No JVD, No Murmur, Irregularly Irregular, Tachycardia Gastrointestinal: Non Tender, Soft Extremity: Normal Capillary Refill, No Calf Tenderness, Pedal Edema (TRACE TO 1+ EDEMA ON RIGHT; 2+ EDEMA ON LEFT; LEFT KNEE SURGICAL SITE HEALING WELL, NO SIGNS OF INFECTION. 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 Norm as Tested Skin: Normal Color, Warm/Dry Progress/Results/Core Measures Results/Orders Lab Results Laboratory Tests Test 03/27/22 03:56 Range/Units White Blood Count 9.4 4.3-11.0 10^3/uL Red Blood Count 4.98 3.80-5.11 10^6/uL Hemoglobin 14.7 11.5-16.0 g/dL Hematocrit 44 35-52 % Mean Corpuscular Volume 88 80-99 fL Mean Corpuscular Hemoglobin 30 25-34 pg Mean Corpuscular Hemoglobin Concent 34 32-36 g/dL Red Cell Distribution Width 14.4 10.0-14.5 % Platelet Count 287 130-400 10^3/uL Mean Platelet Volume 11.5 9.0-12.2 fL Immature Granulocyte % (Auto) 0 % Neutrophils (%) (Auto) 79 H 42-75 % Lymphocytes (%) (Auto) 13 12-44 % Monocytes (%) (Auto) 6 0-12 % Eosinophils (%) (Auto) 1 0-10 % Basophils (%) (Auto) 1 0-10 % Neutrophils # (Auto) 7.4 1.8-7.8 10^3/uL Lymphocytes # (Auto) 1.2 1.0-4.0 10^3/uL Monocytes # (Auto) 0.6 0.0-1.0 10^3/uL Eosinophils # (Auto) 0.1 0.0-0.3 10^3/uL Basophils # (Auto) 0.1 0.0-0.1 10^3/uL Immature Granulocyte # (Auto) 0.0 0.0-0.1 10^3/uL Prothrombin Time 15.7 H 12.2-14.7 SEC INR Comment 1.2 0.8-1.4 Activated Partial Thromboplast Time 32 24-35 SEC D-Dimer 2.94 H 0.00-0.49 UG/ML Sodium Level 139 135-145 MMOL/L Potassium Level 3.6 3.6-5.0 MMOL/L Chloride Level 112 H 98-107 MMOL/L Carbon Dioxide Level 16 L 21-32 MMOL/L Anion Gap 11 5-14 MMOL/L Blood Urea Nitrogen 17 7-18 MG/DL Creatinine 0.81 0.60-1.30 MG/DL Estimat Glomerular Filtration Rate 76 BUN/Creatinine Ratio 21 Glucose Level 165 H 70-105 MG/DL Calcium Level 9.1 8.5-10.1 MG/DL Corrected Calcium 9.3 8.5-10.1 MG/DL Magnesium Level 1.8 1.6-2.4 MG/DL Total Bilirubin 1.0 0.1-1.0 MG/DL Aspartate Amino Transf (AST/SGOT) 12 5-34 U/L Alanine Aminotransferase (ALT/SGPT) 18 0-55 U/L Alkaline Phosphatase 99 40-136 U/L Total Creatine Kinase 10 L 29-168 U/L Creatine Kinase MB 0.7 <6.6 NG/ML Myoglobin 39.2 10.0-92.0 NG/ML Troponin I < 0.028 <0.028 NG/ML B-Type Natriuretic Peptide 215.1 H <100.0 PG/ML Total Protein 6.4 6.4-8.2 GM/DL Albumin 3.7 3.2-4.5 GM/DL TSH [place] Testing 1.16 0.35-4.94 UIU/ML My Orders Orders - LEROY CÁRDENAS DO Ed Iv/Invasive Line Start (03/27/22 03:47) Ekg Tracing (03/27/22 03:47) O2 (03/27/22 03:47) Monitor-Rhythm Ecg Trace Only (03/27/22 03:47) Bnp [place] (03/27/22 03:47) Cbc With Automated Diff (03/27/22 03:47) Comprehensive Metabolic Panel (03/27/22 03:47) Creatine Kinase (03/27/22 03:47) Creatine Kinase Mb (03/27/22 03:47) Fibrin Degradation Products (03/27/22 03:47) Magnesium (03/27/22 03:47) Protime With Inr (03/27/22 03:47) Partial Thromboplastin Time (03/27/22 03:47) Thyroid Analyzer (03/27/22 03:47) Myoglobin Serum (03/27/22 03:47) Troponin I [place] (03/27/22 03:47) Chest 1 View, Ap/Pa Only (03/27/22 03:47) Diltiazem Injection (Cardizem Injection) (03/27/22 04:00) Diltiazem Drip Pre-Mix (Cardizem Drip Pr (03/27/22 04:00) Ekg Tracing (03/27/22 04:07) Medications Given in ED Current Medications Medications Dose Ordered Sig/Lalito Route Start Time Stop Time Status Last Admin Dose Admin Diltiazem HCl 20 mg ONCE ONCE IVP 03/27/22 04:00 03/27/22 04:01 DC 03/27/22 04:08 20 MG Vital Signs/I&O 03/27/22 03/27/22 03/27/22 03/27/22 03:47 03:47 04:07 04:08 Temp 36.5 Pulse 152 130 103 Resp 20 B/P (MAP) 127/114 (118) 135/103 135/103 Pulse Ox 95 97 O2 Delivery Nasal Cannula Nasal Cannula O2 Flow Rate 2.00 2.00 Blood Pressure Mean: 114 Progress Progress Note : Progress Note GIVEN : -CARDIZEM BOLUS AND PLACED ON DRIP PT IS ALREADY ON ASPIRIN AND ELIQUIS HEART RATE DOWN BUT STILL IN ATRIAL FIB BP STABLE CHEST PRESSURE AND SHORTNESS OF BREATH IMPROVED. NO DETERIORATION IN PT'S CONDITION DURING ER STAY. Initial ECG Impression Date: Mar 27, 2022 Initial ECG Impression Time: 03:53 Initial ECG Rate: 137 Initial ECG Rhythm: A Fib/Flutter Initial ECG Impression: Atrial Fibrillation w/RVR Comment SAME WITH PRIOR EKG'S WITH ATRIAL FIBRILLATION LAST EKG 12/26/21 POST CARDIOVERSION, SHOWS NORMAL SINUS RHYTHM EKG : EKG Time: 04:40 Rate: 105 Rhythm: A Fib/Flutter Diagnostic Imaging Comments CXR--NO ACUTE PROCESS, PENDING RADIOLOGIST REVIEW Reviewed: Reviewed by Me Departure Communication (Admissions) 7163--SPOKE WITH DR. LUZ, HOSPITALIST, ACCEPTS PT FOR ADMIT. WILL CONSULT CARDIOLOGY IN AM. WILL DEFER TO THEM REGARDING NEED FOR CT CHEST ANGIOGRAM, PT IS ALREADY ON ELIQUIS 0434--REPORT TO DR. COMER, E-ICU PHYSICIAN Impression Primary Impression: Atrial fibrillation with rapid ventricular response Additional Impressions: HTN (hypertension) S/P LEFT KNEE REPLACEMENT 03/17/22 Disposition: ADMITTED INPATIENT Condition: Stable Admissions Decision to Admit Reason: Admit from ER (General) Decision to Admit/Date: Mar 27, 2022 Time/Decision to Admit Time: 04:35 Departure-Patient Inst. Referrals: NEVAEH FRANKS MD (PCP/Family) Primary Care Physician LEROY CÁRDENAS DO Mar 27, 2022 04:14
[2022-03-27 04:17] LABS: ALKALINE PHOSPHATASE 99 U/L (40-136); CREATININE SERUM 0.81 MG/DL (0.60-1.30); FIBRIN DEGRADATION PRODUCTS 2.94 UG/ML (0.00-0.49); GFR ESTIMATED 76; INR 1.2 (0.8-1.4); PROTHROMBIN TIME PATIENT 15.7 SEC (12.2-14.7)
[2022-03-27 04:18] LABS: BUN/CREATININE RATIO 21
[2022-03-27 04:20] LABS: ALANINE AMINOTRANSFERASE 18 U/L (0-55); MAGNESIUM 1.8 MG/DL (1.6-2.4)
[2022-03-27 04:21] LABS: CREATINE KINASE 10 U/L (29-168)
[2022-03-27 04:28] LABS: CREATINE KINASE MB 0.7 NG/ML (<6.6)
[2022-03-27 04:40] LABS: TSH (THYROID ANALYZER) 1.16 UIU/ML (0.35-4.94)
[2022-03-27] MEDS ORDERED: NS IV 500 ML 500 ML IV PRN (05:15)
[2022-03-27] MEDS: MAGNESIUM 1 GM/100 ML IVPB 100 ML IV SCH (05:53)
[2022-03-27] MEDS: POTASSIUM CL 10MEQ/50ML IVPB 50 ML IV SCH (05:53)
[2022-03-27] MEDS: CATHETER FLUSH 10 ML SYR IVP SCH ×3 (05:53→21:43)
[2022-03-27] MEDS: KCL 20 MEQ TAB (K-DUR) PO SCH (05:55)
--- NOTE | 2022-03-27 06:57 | Diagnostic Imaging Report ---
INDICATION: Tachycardia and hypertension EXAMINATION: Chest 03/27/2022 COMPARISON: 11/13/2021 FINDINGS: There is cardiomegaly. There is a likely hiatal hernia. No infiltrates. No effusions. No pneumothorax. Pulmonary vasculature unremarkable. IMPRESSION: 1. Cardiomegaly with suspected hiatal hernia. Dictated by: Dictated on workstation # [id number]
[2022-03-27] MEDS ORDERED: KCL 20 MEQ TAB (K-DUR) PO ONE (09:00)
--- NOTE | 2022-03-27 09:10 | History & Physical-Hospitalist ---
History of Present Illness HPI/Chief Complaint Pt is a 76yoCF with a PMH of atrial fibrillation, HTN, obesity, OA s/p recent TKA who presented to the ER due to tachycardia. She has a history of a fib and had cardioversion this summer and has done well since. She had TKA done last week and was off Eliquis for 2 days but otherwise has been compliant with her medications. She has had difficulty being compliant with her CPAP though as she doesn't like the mask. She states Dr Santana prescribed her Zaleplon and she took it last night at 10pm. She awoke around 0200 with tachycardia. She believes the medication caused this. She had her apple watch on and it showed a heart rate of 179 so decided to seek evaluation in the ER. She was found to be in a fib with RVR and admitted to the ICU for cardizem gtt. She reports feeling better this morning with her HR under better control. Source: patient Date Seen 03/27/22 Time Seen by a Provider: 09:04 Attending Physician Gume Souza MD PCP Admitting Physician: Riky Hickman MD Attending Physician: Riky Hickman MD Referring Physician Date of Admission Mar 27, 2022 at 04:35 Home Medications & Allergies Home Medications Reviewed patient Home Medication Reconciliation performed by pharmacy medication reconciliations lot technician and/or nursing. Patients Allergies have been reviewed. Allergies Allergies Coded Allergies No Known Drug Allergies (Vlybegcrny02/4/19) Past Oxuqqtd-Ylwyzt-Htuqdk Hx Patient Social History Tobacco Use?: No Smoking Status: Never a Smoker Smokeless Tobacco Frequency: Never a User Use of E-Cig and/or Vaping dev: No Substance use?: No Alcohol Use?: No Pt feels they are or have been: No Immunizations Up To Date First/Initial COVID19 Vaccinat: X2 Tetanus Booster (TDap): Unknown Current Status Advance Directives: No Communicates: Verbally Primary Language: Sierra Leonean Preferred Spoken Language: [place] Leonean Is interpretation needed?: No Sensory deficits: Hearing impairment Implanted or Applied Medical D: None Past Medical History Surgeries: Abdominal, Appendectomy, Hysterectomy, Joint Replacement, Orthopedic Atrial Fibrillation, Chronic Edema/Swelling, Hypertension 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, Menopausal Abdominal Hernia, Diverticulosis Arthritis Blood Disorders: No Family Medical History Reviewed Nursing Family Hx No Pertinent Family Hx Review of Systems Constitutional: No chills, No fever EENTM: no symptoms reported Respiratory: no symptoms reported Cardiovascular: No edema; Hx of Intervention, palpitations Gastrointestinal: no symptoms reported Genitourinary: no symptoms reported Musculoskeletal: see HPI Skin: no symptoms reported Psychiatric/Neurological: No Symptoms Reported Physical Exam Physical Exam Vital Signs Vital Signs - First Documented 03/27/22 03:47 Temp 36.5 Pulse 152 Resp 20 B/P (MAP) 127/114 (118) Pulse Ox 95 O2 Delivery Nasal Cannula O2 Flow Rate 2.00 Capillary Refill : Less Than 3 Seconds Height, Weight, BMI Height: '" Weight: lbs. oz. kg; 38.49 BMI Method: General Appearance: No Apparent Distress, WD/WN HEENT: PERRL/EOMI, Moist Mucous Membranes Neck: Normal Inspection, Supple Respiratory: Lungs Clear, No Accessory Muscle Use, No Respiratory Distress Cardiovascular: Regular Rate, Rhythm, No JVD, No Murmur Gastrointestinal: Normal Bowel Sounds, Non Tender, Soft Extremity: Normal Capillary Refill, No Calf Tenderness, No Pedal Edema Neurologic/Psychiatric: Alert, Oriented x3, Normal Mood/Affect Skin: Normal Color, Warm/Dry Results Results/Procedures Labs Laboratory Tests 03/27/22 03:56 03/28/22 04:50 Patient resulted labs reviewed. Imaging: Reviewed Imaging Report Imaging [facility] [place] NAME: DIANA AMBRIZ [facility] REC#: [id number] PT STATUS: ADM IN : 1945 PHYSICIAN: LEROY CÁRDENAS DO ADMIT DATE: 03/27/22/ICU Signed Date of Exam:03/27/22 CHEST 1 VIEW, AP/PA ONLY INDICATION: Tachycardia and hypertension EXAMINATION: Chest 03/27/2022 COMPARISON: 11/13/2021 FINDINGS: There is cardiomegaly. There is a likely hiatal hernia. No infiltrates. No effusions. No pneumothorax. Pulmonary vasculature unremarkable. IMPRESSION: 1. Cardiomegaly with suspected hiatal hernia. Dictated by: Dictated on workstation # [id number] Dict: 03/27/22 0655 Trans: 03/27/22 1145 [facility] [place] [id number] Interpreted by: JEAN-CLAUDE HOPE MD Electronically signed by: JEAN-CLAUDE HOPE MD 03/27/22 8050 Assessment/Plan Admission Diagnosis a-fib with RVR Admission Status: Observation Assessment and Plan a-fib with RVR Currently on cardizem Cardiology consulted, appreciate recs Discussed with BAYLEE Toro for cardiology Continue home anticoagulation Telemetry I updated Dr Souza HTN BELKIS Clinically relevant, no acute needs DVT ppx: Anticoagulation as above Diagnosis/Problems Diagnosis/Problems (1) Atrial fibrillation with RVR (2) HTN (hypertension) Status: Chronic Qualifiers: Hypertension type: primary hypertension Qualified Codes: I10 - Essential (primary) hypertension (3) Obesity Status: Chronic (4) Osteoarthritis Status: Chronic (5) Difficulty with CPAP use Clinical Quality Measures AMI/AHF: ASA po Prior to arrival: Yes FLACO BARNES MD Mar 27, 2022 09:10
[2022-03-27] MEDS ORDERED: APIXABAN 5 MG (ELIQUIS) TABLET PO NR (09:30)
--- NOTE | 2022-03-27 12:33 | Consultation-Cardiology ---
HPI-Cardiology Cardiology Consultation Date of Consultation 03/27/22 Date of Admission Time Seen by Provider: 12:30 Indication: Atrial fibrillation HPI 76-year-old lady with paroxysmal atrial fibrillation, underwent knee surgery about 4 days ago, returned to the hospital with palpitation feeling her heart racing, patient thinks that she went back to atrial fibrillation last night. Review of her record showed a note from Dr. Cabezas reporting persistent atrial fibrillation it appears that she went back to atrial fibrillation after the cardioversion even though that patient does not recall that. Came into the emergency room, maintained on Cardizem drip. No chest pain was reported but she has been complaining of fatigue and shortness of breath Home Medications & Allergies Allergies: Coded Allergies: No Known Drug Allergies (Unverified , 05/11/19) Home Medication List Reviewed: Yes YDI-Gqxwwp-Gkqrde Hx Patient Social History Employed/Student: retired Smoking Status: Never a Smoker Have you traveled recently?: No Alcohol Use?: No Past Medical History Discussed below Family Medical History Significant Family History: No Pertinent Family Hx Review of Systems-General Review of Systems Constitutional: no symptoms reported EENTM: see HPI, no symptoms reported Respiratory: see HPI; No cough; dyspnea on exertion; No hemoptysis, No orthopnea, No phlegm, No short of breath, No stridor, No wheezing, No other Cardiovascular: see HPI; No chest pain, No edema, No Hx of Intervention; palpitations; No syncope, No vascular heart diseas, No other Gastrointestinal: no symptoms reported, see HPI Genitourinary: no symptoms reported, see HPI Musculoskeletal: see HPI Skin: no symptoms reported Psychiatric/Neurological: No Symptoms Reported Reviewed Test Results Reviewed Test Results Lab Laboratory Tests Test 03/27/22 03:56 03/27/22 07:09 Range/Units White Blood Count 9.4 4.3-11.0 10^3/uL Red Blood Count 4.98 3.80-5.11 10^6/uL Hemoglobin 14.7 11.5-16.0 g/dL Hematocrit 44 35-52 % Mean Corpuscular Volume 88 80-99 fL Mean Corpuscular Hemoglobin 30 25-34 pg Mean Corpuscular Hemoglobin Concent 34 32-36 g/dL Red Cell Distribution Width 14.4 10.0-14.5 % Platelet Count 287 130-400 10^3/uL Mean Platelet Volume 11.5 9.0-12.2 fL Immature Granulocyte % (Auto) 0 % Neutrophils (%) (Auto) 79 H 42-75 % Lymphocytes (%) (Auto) 13 12-44 % Monocytes (%) (Auto) 6 0-12 % Eosinophils (%) (Auto) 1 0-10 % Basophils (%) (Auto) 1 0-10 % Neutrophils # (Auto) 7.4 1.8-7.8 10^3/uL Lymphocytes # (Auto) 1.2 1.0-4.0 10^3/uL Monocytes # (Auto) 0.6 0.0-1.0 10^3/uL Eosinophils # (Auto) 0.1 0.0-0.3 10^3/uL Basophils # (Auto) 0.1 0.0-0.1 10^3/uL Immature Granulocyte # (Auto) 0.0 0.0-0.1 10^3/uL Prothrombin Time 15.7 H 12.2-14.7 SEC INR Comment 1.2 0.8-1.4 Activated Partial Thromboplast Time 32 24-35 SEC D-Dimer 2.94 H 0.00-0.49 UG/ML Sodium Level 139 135-145 MMOL/L Potassium Level 3.6 3.6-5.0 MMOL/L Chloride Level 112 H 98-107 MMOL/L Carbon Dioxide Level 16 L 21-32 MMOL/L Anion Gap 11 5-14 MMOL/L Blood Urea Nitrogen 17 7-18 MG/DL Creatinine 0.81 0.60-1.30 MG/DL Estimat Glomerular Filtration Rate 76 BUN/Creatinine Ratio 21 Glucose Level 165 H 70-105 MG/DL Calcium Level 9.1 8.5-10.1 MG/DL Corrected Calcium 9.3 8.5-10.1 MG/DL Magnesium Level 1.8 1.6-2.4 MG/DL Total Bilirubin 1.0 0.1-1.0 MG/DL Aspartate Amino Transf (AST/SGOT) 12 5-34 U/L Alanine Aminotransferase (ALT/SGPT) 18 0-55 U/L Alkaline Phosphatase 99 40-136 U/L Total Creatine Kinase 10 L 29-168 U/L Creatine Kinase MB 0.7 <6.6 NG/ML Myoglobin 39.2 10.0-92.0 NG/ML Troponin I < 0.028 < 0.028 <0.028 NG/ML B-Type Natriuretic Peptide 215.1 H <100.0 PG/ML Total Protein 6.4 6.4-8.2 GM/DL Albumin 3.7 3.2-4.5 GM/DL TSH [place] Testing 1.16 0.35-4.94 UIU/ML Physical Exam Physical Exam Vital Signs Vital Signs - First Documented 03/27/22 03:47 Temp 36.5 Pulse 152 Resp 20 B/P (MAP) 127/114 (118) Pulse Ox 95 O2 Delivery Nasal Cannula O2 Flow Rate 2.00 Capillary Refill : Less Than 3 Seconds Height, Weight, BMI Height: '" Weight: lbs. oz. kg; 38.49 BMI Method: General Appearance: No Apparent Distress, WD/WN, Anxious Eyes: Bilateral Eye Normal Inspection, Bilateral Eye PERRL, Bilateral Eye EOMI HEENT: PERRL/EOMI, TMs Normal, Normal ENT Inspection, Pharynx Normal, Moist Mucous Membranes Neck: No Carotid Bruit, No JVD Respiratory: Normal Breath Sounds, No Accessory Muscle Use, No Respiratory Distress Cardiovascular: No JVD, No Murmur, Irregularly Irregular, Tachycardia Gastrointestinal: Non Tender, Soft Back: Normal Inspection, No CVA Tenderness, No Vertebral Tenderness Extremity: Normal Capillary Refill, No Calf Tenderness, Pedal Edema (TRACE TO 1+ EDEMA ON RIGHT; 2+ EDEMA ON LEFT; LEFT KNEE SURGICAL SITE HEALING WELL, NO SIGNS OF INFECTION. 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 Back in atrial fibrillation with rapid ventricular response. Review of her record, she was seen by Dr. Cabezas on February 05, 2022 and it was reported that she had persistent atrial fibrillation. Patient underwent cardioversion and appeared that she reverted back to atrial fibrillation. Patient was asymptomatic. She has stopped Eliquis for 2 days prior to her knee surgery earlier this week. Discussed with her the management plan, planning to proceed with ESSENCE with electrical cardioversion. [id number] score 4, patient has been maintained on Eliquis, she has stopped the medication for 48 hours earlier this week. History of supraventricular tachycardia, maintained on Cardizem Dyspnea on exertion, reporting more shortness of breath recently with her tachycardia. Hypertension, monitor blood pressure Obstructive sleep apnea, unable to tolerate CPAP BMI 38, we discussed weight loss. Clinical Quality Measures AMI/AHF: ASA po Prior to arrival: Yes RITIKA MARTINEZ MD Mar 27, 2022 12:33
[2022-03-27] MEDS ORDERED: ACETAMINOPHEN 500 MG TAB (TYLENOL) PO PRN (14:30)
[2022-03-27] MEDS: APIXABAN 5 MG (ELIQUIS) TABLET PO SCH (20:08)
[2022-03-27] MEDS ORDERED: AMIODARONE FOR BOLUS 150 MG in NS (IVPB) 100 ML IV SCH (21:10)
[2022-03-27] MEDS ORDERED: AMIODARONE (Pyxis Kit Only) BOLUS 150 MG/3 ML IV ONE (21:23)
[2022-03-27] MEDS ORDERED: D5W 100 ML IVPB 100 ML IV ONE (21:24)
[2022-03-27] MEDS ORDERED: D5W IV SOLUTION (EXCEL) 250 ML IV ONE (21:24)
[2022-03-27] MEDS ORDERED: AMIODARONE (Pyxis Kit Only) DRIP 450 MG/9 ML VIAL IV ONE (21:24)
[2022-03-27] MEDS: AMIODARONE INJECTION 450 MG in NORMAL SALINE 250 ML IV SCH (22:08)
[2022-03-28] MEDS ORDERED: NORMAL SALINE 250 ML ONE (04:01)
[2022-03-28] MEDS ORDERED: AMIODARONE (Pyxis Kit Only) DRIP 450 MG/9 ML VIAL IV ONE (04:02)
[2022-03-28] MEDS: AMIODARONE INJECTION 450 MG in NORMAL SALINE 250 ML IV SCH (04:05)
[2022-03-28 04:59] LABS: BASOPHILS # (AUTO) 0.1 10^3/uL (0.0-0.1); BASOPHILS % (AUTO) 1 % (0-10); EOSINOPHILS # (AUTO) 0.1 10^3/uL (0.0-0.3); EOSINOPHILS % (AUTO) 2 % (0-10); HEMATOCRIT 40 % (35-52); HEMOGLOBIN 13.3 g/dL (11.5-16.0); LYMPHOCYTES # (AUTO) 1.1 10^3/uL (1.0-4.0); LYMPHOCYTES % (AUTO) 14 % (12-44); MEAN CORPUSCULAR HEMOGLOBIN 30 pg (25-34); MEAN CORPUSCULAR HGB CONC 33 g/dL (32-36); MEAN CORPUSCULAR VOLUME 89 fL (80-99); MEAN PLATELET VOLUME 11.4 fL (9.0-12.2); MONOCYTES # (AUTO) 0.6 10^3/uL (0.0-1.0); MONOCYTES % (AUTO) 7 % (0-12); NEUTROPHILS % (AUTO) 75 % (42-75); PLATELET COUNT 245 10^3/uL (130-400)
[2022-03-28 05:16] LABS: ALBUMIN 3.3 GM/DL (3.2-4.5); POTASSIUM 3.9 MMOL/L (3.6-5.0)
[2022-03-28 05:17] LABS: CALCIUM 8.6 MG/DL (8.5-10.1)
[2022-03-28 05:19] LABS: TOTAL PROTEIN 5.8 GM/DL (6.4-8.2)
[2022-03-28 05:22] LABS: CREATININE SERUM 0.85 MG/DL (0.60-1.30); PHOSPHORUS 3.1 MG/DL (2.3-4.7)
[2022-03-28 05:25] LABS: MAGNESIUM 1.9 MG/DL (1.6-2.4)
[2022-03-28] MEDS: POTASSIUM CL 10MEQ/50ML IVPB 50 ML IV SCH (05:48)
[2022-03-28] MEDS: MAGNESIUM 1 GM/100 ML IVPB 100 ML IV SCH (05:49)
[2022-03-28] MEDS: CATHETER FLUSH 10 ML SYR IVP SCH ×2 (05:49→08:00)
[2022-03-28] MEDS: KCL 20 MEQ TAB (K-DUR) PO SCH (05:49)
[2022-03-28] MEDS: APIXABAN 5 MG (ELIQUIS) TABLET PO SCH (07:59)
--- NOTE | 2022-03-28 08:29 | Discharge Inst-Simple/Standard ---
Discharge Inst-Standard Discharge Medications New, Converted or Re-Newed RX: Transmitted to Pharmacy Patient Instructions/Follow Up Plan of Care/Instructions/FU: Please continue to take your medications as written. Please follow up with your primary care doctor to follow up this hospital stay. Activity as Tolerated: Yes Discharge Diet: Cardiac Diet Return to The Hospital For: Chest pain, elevated heart rate, shortness of breath, fever, weakness, if you feel you are getting worse. FLACO BARNES MD Mar 28, 2022 08:29
--- NOTE | 2022-03-28 08:31 | Discharge Summary ---
Diagnosis/Chief Complaint Date of Admission Mar 27, 2022 at 04:35 Date of Discharge Discharge Date: Mar 28, 2022 Admission Diagnosis a-fib with RVR Primary Care Gume Franks MD Discharge Diagnosis (1) Atrial fibrillation with RVR (2) HTN (hypertension) Status: Chronic (3) Obesity Status: Chronic (4) Osteoarthritis Status: Chronic (5) Difficulty with CPAP use Discharge Summary Discharge Physical Exam Allergies: Coded Allergies: No Known Drug Allergies (Unverified , 05/11/19) Vitals & I&Os Vital Signs Date Time Temp Pulse Resp B/P (MAP) Pulse Ox O2 Delivery O2 Flow Rate FiO2 03/28/22 07:00 70 03/28/22 06:00 21 149/82 (104) 96 Room Air 03/28/22 03:05 36.9 03/27/22 09:33 0.00 General Appearance: No Apparent Distress, WD/WN Respiratory: Lungs Clear, No Respiratory Distress Cardiovascular: Regular Rate, Rhythm, No Murmur Neurologic/Psychiatric: Alert, Oriented x3 Hospital Course Patient was admitted to the hospital secondary to atrial fibrillation with rapid ventricular rate. She was admitted to the ICU on a Cardizem drip. She spontan eously converted to sinus rhythm. She was then started on amiodarone drip. She was transitioned to oral amnio for discharge. She is to follow-up with cardiology and her primary care physician. Labs (last 24 hrs) Laboratory Tests 03/28/22 04:50: White Blood Count 8.0, Red Blood Count 4.47, Hemoglobin 13.3, Hematocrit 40, Mean Corpuscular Volume 89, Mean Corpuscular Hemoglobin 30, Mean Corpuscular Hemoglobin Concent 33, Red Cell Distribution Width 14.6H, Platelet Count 245, Mean Platelet Volume 11.4, Immature Granulocyte % (Auto) 2, Neutrophils (%) (Auto) 75, Lymphocytes (%) (Auto) 14, Monocytes (%) (Auto) 7, Eosinophils (%) (Auto) 2, Basophils (%) (Auto) 1, Neutrophils # (Auto) 6.0, Lymphocytes # (Auto) 1.1, Monocytes # (Auto) 0.6, Eosinophils # (Auto) 0.1, Basophils # (Auto) 0.1, Immature Granulocyte # (Auto) 0.1, Sodium Level 140, Potassium Level 3.9, Chloride Level 111H, Carbon Dioxide Level 19L, Anion Gap 10, Blood Urea Nitrogen 20H, Creatinine 0.85, Estimat Glomerular Filtration Rate 71, BUN/Creatinine Ratio 24, Glucose Level 139H, Calcium Level 8.6, Corrected Calcium 9.2, Phosphorus Level 3.1, Magnesium Level 1.9, Total Bilirubin 1.0, Aspartate Amino Transf (AST/SGOT) 10, Alanine Aminotransferase (ALT/SGPT) 13, Alkaline Phosphatase 92, Total Protein 5.8L, Albumin 3.3 Microbiology 03/27/22 MRSA Screen - Final, Complete MRSA not isolated Patient resulted labs reviewed. Pending Labs Laboratory Tests 03/28/22 04:50: White Blood Count 8.0, Red Blood Count 4.47, Hemoglobin 13.3, Hematocrit 40, Mean Corpuscular Volume 89, Mean Corpuscular Hemoglobin 30, Mean Corpuscular Hemoglobin Concent 33, Red Cell Distribution Width 14.6, Platelet Count 245, Mean Platelet Volume 11.4, Immature Granulocyte % (Auto) 2, Neutrophils (%) (Auto) 75, Lymphocytes (%) (Auto) 14, Monocytes (%) (Auto) 7, Eosinophils (%) (Auto) 2, Basophils (%) (Auto) 1, Neutrophils # (Auto) 6.0, Lymphocytes # (Auto) 1.1, Monocytes # (Auto) 0.6, Eosinophils # (Auto) 0.1, Basophils # (Auto) 0.1, Immature Granulocyte # (Auto) 0.1, Sodium Level 140, Potassium Level 3.9, Chlor sean Level 111, Carbon Dioxide Level 19, Anion Gap 10, Blood Urea Nitrogen 20, Creatinine 0.85, Estimat Glomerular Filtration Rate 71, BUN/Creatinine Ratio 24, Glucose Level 139, Calcium Level 8.6, Corrected Calcium 9.2, Phosphorus Level 3.1, Magnesium Level 1.9, Total Bilirubin 1.0, Aspartate Amino Transf (AST/SGOT) 10, Alanine Aminotransferase (ALT/SGPT) 13, Alkaline Phosphatase 92, Total Protein 5.8, Albumin 3.3 Imaging: Reviewed Imaging Report Discussion & Recommendations Discharge Planning: >30 minutes discharge planning Discharge Home Medications: Active Scripts Active Reported Potassium Chloride 20 Meq Tablet.er 20 Meq PO DAILY PRN Eliquis (Apixaban) 5 Mg Tablet 5 Mg PO BID Diltiazem 24Hr Cd (Diltiazem HCl) 300 Mg Cap.er.24h 300 Mg PO DAILY Aspirin EC (Aspirin) 81 Mg Tablet.dr 81 Mg PO DAILY Furosemide 40 Mg Tablet 40 Mg PO DAILY PRN Instructions to patient/family Please see electronic discharge instructions given to patient. Clinical Quality Measures AMI/AHF: ASA po Prior to arrival: Yes Copy Copies To 1: GUME FRANKS MD Problem Qualifiers (1) HTN (hypertension): Hypertension type: primary hypertension Qualified Codes: I10 - Essential (primary) hypertension FLACO BARNES MD Mar 28, 2022 08:31
[2022-03-28] MEDS ORDERED: ASPIRIN E.C. 81 MG (ECOTRIN) TAB PO SCH (09:00)
--- NOTE | 2022-03-28 09:52 | Cardiology Progress Note ---
Subjective Date Seen by Provider: Mar 28, 2022 Time Seen by Provider: 09:49 Subjective/Events-last exam Patient was seen and evaluated, laying down in bed Feeling better, converted back to sinus rhythm Review of Systems General: No Chills, No Night Sweats, No Fatigue, No Malaise, No Appetite, No Other HEENT: No Head Aches, No Visual Changes, No Eye Pain, No Ear Pain, No Dysphasia, No Sinus Congestion, No Post Nasal Drip, No Sore Throat, No Other Pulmonary: No Dyspnea, No Cough, No Pleuritic Chest Pain, No Other Cardiovascular: No: Chest Pain, Palpitations, Orthopnea, Paroxysmal Noc. Dyspnea, Edema, Lt Headedness, Other Objective-Cardiology Exam Last Set of Vital Signs Vital Signs 03/27/22 03/28/22 03/28/22 09:33 08:00 09:00 Temp 36.4 Pulse 74 Resp 16 B/P (MAP) 158/97 (117) O2 Delivery Room Air O2 Flow Rate 0.00 I&O Intake and Output 03/28/22 00:00 Intake Total 868 ml Output Total 420 ml Balance 448 ml Intake Oral 640 ml IV Total 228 ml Output Urine Total 420 ml # Voids 5 Daily Weight Change No General: Alert, Oriented X3, Cooperative HEENT: Atraumatic, PERRLA Neck: Supple, No JVD, No Thyromegaly Lungs: Clear to Auscultation, Normal Air Movement Heart: Regular Rate, Normal S1, Normal S2, No Murmurs Abdomen: Normal Bowel Sounds, Soft, No Tenderness, No Hepatosplenomegaly, No Masses Extremities: No Clubbing, No Cyanosis, No Edema, Normal Pulses, No Tenderness/Swelling Skin: No Rashes, No Breakdown, No Significant Lesion Neuro: Normal Gait, Normal Speech, Strength at 5/5 X4 Ext, Normal Tone, Sensation Intact Psych/Mental Status: Mental Status NL, Mood NL Results Lab Laboratory Tests 03/28/22 04:50 A/P-Cardiology Admission Diagnosis Paroxysmal atrial fibrillation Palpitation Shortness of breath Hypertension Assessment/Plan Paroxysmal atrial fibrillation. Back in atrial fibrillation with rapid ventricular response. Review of her record, she was seen by Dr. Cabezas on February 05, 2022 and it was reported that she had persistent atrial fibrillation. Patient underwent cardioversion and appeared that she reverted back to atrial fibrillation. Patient was asymptomatic. She has stopped Eliquis for 2 days prior to her knee surgery earlier this week. Patient was on Cardizem drip, she was scheduled for [facility]SSENCE and cardioversion. She converted to sinus rhythm on Cardizem drip. After she converted to sinus rhythm I bolused her with amiodarone and started her on amiodarone drip Okay for discharge and follow-up as an outpatient. [id number] score 4, patient has been maintained on Eliquis, she has stopped the medication for 48 hours earlier this week. History of supraventricular tachycardia, maintained on Cardizem Dyspnea on exertion, reporting more shortness of breath recently with her tachycardia. Hypertension, monitor blood pressure Obstructive sleep apnea, unable to tolerate CPAP BMI 38, we discussed weight loss. RITIKA MARTINEZ MD Mar 28, 2022 09:52
[2022-03-28] MEDS ORDERED: AMIO200T65 PO (10:40)
== END 2022-03-28 14:45 | disposition home or self-care (01) ==
LOC: EDUNIT# 03:41 → ER 03:44 → UNDOADMOB 04:35 → ICU 04:35 → INTOOBSV 04:35 → ICU 05:10 → UNDODISOB 03-28 14:45
PROVIDERS: ADMIT Internal Medicine; ATTEND Internal Medicine
DX: I48.91 Unspecified atrial fibrillation (principal); I10 Essential (primary) hypertension; E66.9 Obesity, unspecified; M19.90 Unspecified osteoarthritis, unspecified site; Z79.01 Long term (current) use of anticoagulants; Z79.82 Long term (current) use of aspirin; Z68.39 Body mass index [BMI] 39.0-39.9, adult; Z28.311 Partially vaccinated for COVID-19
CPT/HCPCS: 71045; 80053 ×2; 82550; 82553; 83735 ×2; 83874; 83880; 84100; 84443; 84484; 85025 ×2; 85379; 85610; 85730; 87081; 93005; 93041; 96365; 96366; 96376 ×2; 99285; G0378; 36415; 96367

== ENCOUNTER → 2022-04-07 | Outpatient (RCR) | payer MEDICARE ==
[~2022-04-07] MED LIST changes: +AMIO200T65 PO
== END | disposition home or self-care (01) ==
PROVIDERS: ATTEND Orthopaedic Surgery
DX: Z47.1 Aftercare following joint replacement surgery (principal); Z96.652 Presence of left artificial knee joint

== ENCOUNTER 2022-04-16 08:51 | Outpatient (RCR) | payer MEDICARE | END 2022-04-25 12:13 | disposition home or self-care (01) | PROVIDERS: ATTEND Orthopaedic Surgery | DX: Z47.1 Aftercare following joint replacement surgery (principal); Z96.652 Presence of left artificial knee joint ==

== ENCOUNTER 2022-06-05 14:31 | Outpatient (RCR) | payer MEDICARE | END 2022-06-07 | PROVIDERS: ATTEND Orthopaedic Surgery | DX: M17.11 Unilateral primary osteoarthritis, right knee (principal); Z96.651 Presence of right artificial knee joint ==

== ENCOUNTER 2022-06-30 11:17 | Outpatient (RCR) | payer MEDICARE | END 2022-07-08 | disposition home or self-care (01) | PROVIDERS: ATTEND Orthopaedic Surgery | DX: M17.11 Unilateral primary osteoarthritis, right knee (principal); M25.561 Pain in right knee; R26.89 Other abnormalities of gait and mobility; R53.1 Weakness ==

== ENCOUNTER → 2022-09-03 | Outpatient (CLI) | payer MEDICARE ==
[~2022-09-03] VITALS: Ht 165 cm; Wt 100.0 kg
[~2022-09-03] MED LIST changes: +CATHETER FLUSH 10 ML SYR IVP PRN
[2022-09-03 09:45] VITALS: BP 163/87
--- NOTE | 2022-09-03 15:04 | Cardiology Stress Test Report ---
Stress Test Report Date of Procedure/Referring: Date of Procedure: Sep 03, 2022 PCP Gume Souza MD Admitting Physician Admitting Physician: Attending Physician: Ritika Martinez MD Baseline Heart Rate: 68 Baseline Blood Pressure: Blood Pressure Systolic: 163 Blood Pressure Diastolic: 87 Vital Signs Date Time Temp Pulse Resp B/P (MAP) Pulse Ox O2 Delivery O2 Flow Rate FiO2 09/03/22 09:45 64 163/87 (112) Baseline Vital Signs Vital Signs Date Time Temp Pulse Resp B/P (MAP) Pulse Ox O2 Delivery O2 Flow Rate FiO2 09/03/22 09:45 64 163/87 (112) Baseline EKG: Baseline EKG: NSR Summary: After explaining the procedure and details to the patient, she signed the consent and was brought to the stress nuclear laboratory. Patient exercised on standard Donovan protocol, EKG, heart rate and blood pressure were monitored continuously, resting and stress doses of radio tracer were injected, imaging was acquired and reviewed in the short axis, horizontal long axis and vertical long axis views Patient was able to exercise for a total of 4 minutes on Donovan protocol, METs 5.8 Maximum heart rate 126 Maximum blood pressure 233/93 Stress EKG, Minimal nondiagnostic changes Recovery EKG, Return to baseline TID: 0.99 SSS: 1 SDS: 1 EF: 76 Conclusion: Good exercise tolerance for a total of 4 minutes on standard Donovan protocol, 5.8 METS achieving 87% of maximal expected heart rate Appropriate heart rate response to exercise with hypertensive response to exercise with peak blood pressure 233/93 return to baseline during recovery Nondiagnostic EKG changes with exercise return to baseline during recovery No ischemia or infarction noted on SPECT images Normal left ventricular size, ejection fraction 76% RITIKA MARTINEZ MD Sep 03, 2022 15:04
== END ==
LOC: CARD 07:56
PROVIDERS: ATTEND Internal Medicine Cardiovascular Disease
DX: R06.09 Other forms of dyspnea (principal)
CPT/HCPCS: 78452; 93017; A9502